=== PATIENT | female | born 2000 | race Caucasian/White ===

== ENCOUNTER 2025-05-26 15:14 | Emergency (ER) | payer OTHER, SELFPAY ==
--- OUTSIDE RECORDS SUMMARY | 2025-04-24 07:32 | XMS_ITS | Encounter Summary ---
Author Organization [facility] Address [address] [facility] [place] [address] Care Team Providers Care Machine Tailer Name Role Phone No Ref-Primary, Physician Primary Care Provider Reason for Referral * Consultation (Priority: 1-2 Weeks) - Pending Review Specialty Diagnoses / Procedures Referred By Bal jara Referred To Contact Urology Diagnoses Hydronephrosis with urinary obstruction due to ureteral calculus Jagdish Neri MD [facility] [address] [facility] [address] [place] [address] Phone: tel: fax: Referral ID Status Reason Start Date Expiration Date V isits Requested Visits Authorized [id number] Pending Review 04/24/2025 04/24/2026 1 1 Question Answer Referral Type: Urology Reason for Referral: Kidney Stones/Nephrolithiasis Kidney Stone Type: Acute Patient Scheduling Instructions: [employer] will call you to coordinate care as prescribed your provider. If you don t hear from a security systems sales representative within 2 business days, please call . Comments Please be aware that coverage of these services is subject to the terms and limitations of your health insurance plan. Call member services at your health plan with any benefit or coverage questions. [employer] will call you to coordinate care as prescribed your provider. If you don t hear from a security systems sales representative within 2 business days, please call . Reason for Visit * Reason Comments Hematuria Abdominal Pain Encounter Details Date Type Department Care Team ([facility] st Contact Info) Description 04/24/2025 7:32 AM CDT - 04/24/2025 1:16 PM CDT Emergency [facility] Emergency Dept [address] [place] [phone] Jagdish Neri MD [facility] [address] [place] [address] Hydronephrosis with urinary obstruction due to ureteral calculus; Right ovarian cyst Discharge Disposition: Home or Self Care Social History Tobacco Use Types Packs/Day Years Used Date Smoking Tobacco: Never Assessed Comments No Sex and Gender Information Value Date Recorded Sex Assigned at Not on file Legal Sex Female 7:31 AM CDT Gender Identity Not on file Sexual Orientation Not on file documented as of this encounter Last Filed Vital Signs Vital Sign Reading Time Taken Comments Blood Pressure 122/75 04/24/2025 11:43 AM CDT Pulse 79 04/24/2025 11:43 AM CDT Temperature 36.2 C (97.2 F) 04/24/2025 7:39 AM CDT Respiratory Rate 18 04/24/2025 7:39 AM CDT Oxygen Saturation 99% 04/24/2025 11:43 AM CDT Inhaled Oxygen Concentration - - Weight 59 kg (130 lb) 04/24/2025 7:39 AM CDT Height 149.9 cm (4' 11) 04/24/2025 7:39 AM CDT Body Mass Index 26.26 04/24/2025 7:39 AM CDT documented in this encounter Discharge Instructions * Discharge Instructions* Jagdish Neri MD - 04/24/2025 12:46 PM CDT I recommend altering doses of Tylenol and ibuprofen spaced out by 3 hours; should take Tylenol, 3 hours after that take ibuprofen, 3 hours after that back to Tylenol, 3 hours after that back to ibuprofen. You can add in the oxycodone as needed for more severe pain. You can use the Zofran for nausea. If you take the oxycodone, you should take MiraLAX as this can cause constipation. You should strain your urine. Return to the emergency department if you develop unbearable pain, high fever or unable empty your bladder. * Attachments The following attachments cannot be sent through Care Everywhere. * Ovarian Cyst: Hemorrhagic ([place]) * Kidney Stone ([place]) documented in this encounter Medications at Time of Discharge ondansetron (ZOFRAN ODT) 4 MG ODT tab Take 1 tablet (4 mg) by mouth every 6 hours as needed for nausea or vomiting. 10 tablet 04/24/2025 04/27/2025 oxyCODONE (ROXICODONE) 5 MG tablet Take 1 tablet (5 mg) by mouth every 6 hours as needed for moderate to severe pain. 6 tablet 04/24/2025 04/27/2025 polyethylene glycol (MIRALAX) 17 GM/Dose powder Take 17 g (1 Capful) by mouth daily. 527 g 04/24/2025 05/24/2025 tamsulosin (FLOMAX) 0.4 MG capsule Take 1 capsule (0.4 mg) by mouth daily for 10 doses. 10 capsule 04/24/2025 05/04/2025 documented as of this encounter ED Notes * Jagdish Neri MD - 04/24/2025 7:57 AM CDT Emergency Department Note History of Present Illness Chief Complaint Hematuria and Abdominal Pain HPI Marilu Melendez is a 25 year old female who presents for evaluation of hematuria and abdominal pain. Patient reports that 3 days ago she began experiencing severe lower abdominal cramping and the next day along with the continued pain she noticed some burning with urination and a small amount of b lood in her urine so she believed she was starting her menstrual period again, her last cycle having been in the beginning of March, however the bleeding has not increased or decreased and she had also now developed some minor urinary incontinence. She states that when this pain is present it has now become too severe for her to sleep through. She tried to take a tylenol last night for palliation but threw the medication up. Patient notes that she may have a chance of . Independent Historian None Review of External Notes None Past Medical History Medical History and Problem List None on file Medications Albuterol Zoloft Surgical History [place] teeth extraction Physical Exam Patient Vitals for the past 24 hrs: BP Temp Temp src Pulse Resp SpO2 Height Weight 04/24/25 1143 122/75 -- -- 79 -- 99 % -- -- 04/24/25 1000 120/72 -- -- 74 -- 98 % -- -- 04/24/25 0945 112/73 -- -- -- -- -- -- -- 04/24/25 0739 (!) 134/91 97.2 ??F (36.2 ??C) Temporal 101 18 99 % 1.499 m (4' 11) 59 kg (130 lb) Physical Exam Constitutional: Alert, attentive, GCS 15 Eyes: EOM are normal, anicteric, conjugate gaze CV: distal extremities warm, well perfused Chest: Non-labored breathing on RA GI: Diffuse bilateral lower abdominal tenderness, no distension. No guarding or rebound. Neurological: Alert, attentive, moving all extremities equally. Skin: Skin is warm and dry. Diagnostics Lab Results Labs Ordered and Resulted from Time of ED Arrival to Time of ED Departure BASIC METABOLIC PANEL - Abnormal Result Value Sodium 138 Potassium 3.8 Chloride 101 Carbon Dioxide (CO2) 20 (*) Anion Gap 17 (*) Urea Nitrogen 12.3 Creatinine 0.90 GFR Estimate 90 Calcium 9.4 Glucose 116 (*) CBC WITH PLATELETS AND DIFFERENTIAL - Abnormal WBC Count 13.5 (*) RBC Count 5.40 (*) Hemoglobin 15.7 Hematocrit 43.3 MCV 80 MCH 29.1 MCHC 36.3 RDW 12.2 Platelet Count 340 % Neutrophils 76 % Lymphocytes 18 % Monocytes 5 % Eosinophils 0 % Basophils 0 % Immature Granulocytes 0 NRBCs per 100 WBC 0 Absolute Neutrophils 10.3 (*) Absolute Lymphocytes 2.4 Absolute Monocytes 0.7 Absolute Eosinophils 0.0 Absolute Basophils 0.0 Absolute Immature Granulocytes 0.1 Absolute NRBCs 0.0 ROUTINE UA WITH MICROSCOPIC - Abnormal Color Urine Straw Appearance Urine Clear Glucose Urine Negative Bilirubin Urine Negative Ketones Urine 20 (*) Specific Redgranite Urine 1.011 Blood Urine Large (*) pH Urine 6.0 Protein Albumin Urine 10 (*) Urobilinogen Urine Normal Nitrite Urine Negative Leukocyte Esterase Urine Trace (*) Mucus Urine Present (*) RBC Urine >182 (*) WBC Urine 22 (*) Squamous Epithelials Urine <1 Hyaline Casts Urine 2 HCG QUALITATIVE - Normal hCG Serum Qualitative Negative HCG QUANTITATIVE - Normal hCG Quantitative <1 URINE CULTURE Imaging Abd/pelvis CT no contrast - Stone Protocol Final Result IMPRESSION: 1. Mild left hydronephrosis due to 5 mm distal ureteral calculus. 2. No other urinary tract calculi. 3. Hepatic steatosis. US Renal Complete Non-Vascular Final Result IMPRESSION: 1. Mild left hydronephrosis. Differential could include ureteral calculus, ureteral stricture, reflux, or ascending UTI/pyelonephritis. Depending on clinical scenario, consider noncontrast CT (if high clinical suspicion for calculus) or CT urogram for further evaluation. 2. Normal right kidney. 3. Mild hepatic steatosis noted. US Pelvis Cmplt w Transvag & Doppler LmtPel Duplex Limited Final Result IMPRESSION: 1. Complex cystic structure at the right ovary may be a decompressing follicle or hemorrhagic cyst.Small right ovarian region fluid. 2. No other acute abnormality. Independent Interpretation I personally reviewed her CT, see obstructing 5 mm distal ureteral stone. ED Course Medications Administered Medications ondansetron (ZOFRAN) injection 4 mg (4 mg Intravenous $Given 04/24/25 0747) sodium chloride 0.9% BOLUS 1,000 mL (0 mLs Intravenous Stopped 04/24/25 1015) acetaminophen (TYLENOL) tablet 975 mg (975 mg Oral $Given 04/24/25 0844) ketorolac (TORADOL) injection 15 mg (15 mg Intravenous $Given 04/24/25 1013) cefTRIAXone (ROCEPHIN) 1 g vial to attach to NS 100 mL bag for ADULTS or NS 50 mL bag for PEDS (0 gIntravenous Stopped 04/24/25 1116) Procedures Procedures Discussion of Management None ED Course ED Course as of 04/24/25 1249 SunApr 24, 2025 0757 I obtained patient history and performed a physical exam. 1232 I reassessed patient. Additional Documentation None Medical Decision Making / Diagnosis [facility] Diagnoses: IV Antibiotics given and/or elevated Lactate of 0 and no sepsis note found - Delete this reminder and enter the sepsis note or '.edcms' before signing chart.>>>None MIPS None MDM Marilu Marcus Melendez is a 25 year old female without significant past medical history presenting for evaluation of 1 day of urinary urgency, frequency with hematuria associated with diffuse lower abdominal pain. On arrival here she was in obvious discomfort with negative test prompting pelvic ultrasound, this shows no evidence of torsion but does show right ovarian cyst likely hemorrhagic.However on recheck, most of her pain was on the left side, her UA does show hematuria without overtevidence of UTI prompting renal ultrasound, this does show mild hydro on the lef suspicious for stone of which she does not have a history of. CT imaging without contrast demonstrates obstructing distal left ureteralt stone at 5 mm. She does not have an BRIAN, her hematuria is consistent with this, have lower suspicion for infection. She does have mild leukocytosis but is afebrile, she was given a dose of ceftriaxone as a precaution pending her CT. We will plan for discharge with close urology follow- up, return precautions including fever inability to void or unrelenting pain were reviewed. Recommended follow-up nonurgently for pelvic cyst. It sounds like there is a family history of ovarian cancer, I did review with with her that this is not indicative of cancer at this point. Disposition The patient was discharged. Diagnosis ICD-10-CM 1. Hydronephrosis with urinary obstruction due to ureteral calculus N13.2 Adult Urology Draw Frame Operator Referral left 2. Right ovarian cyst N83.201 Discharge Medications New Prescriptions ONDANSETRON (ZOFRAN ODT) 4 MG ODT TAB Take 1 tablet (4 mg) by mouth every 6 hours as needed for nausea or vomiting. OXYCODONE (ROXICODONE) 5 MG TABLET Take 1 tablet (5 mg) by mouth every 6 hours as needed for moderate to severe pain. POLYETHYLENE GLYCOL (MIRALAX) 17 GM/DOSE POWDER Take 17 g (1 Capful) by mouth daily. TAMSULOSIN (FLOMAX) 0.4 MG CAPSULE Take 1 capsule (0.4 mg) by mouth daily for 10 doses. Jagdish Neri MD [facility] 12:49 PM 04/24/25 Scribe Disclosure: I, Kayla Pierre, am serving as a scribe at 8:02 AM on 04/24/2025 to document services personally performed by Jagdish Neri MD based on my observations and the provider's statements to me. Jagdish Neri MD 04/24/25 1247 * Theresa Castellanos RN - 04/24/2025 7:34 AM CDT Pt reports lower abdominal cramping x 3 days, progressively worsening. Pt states she believed at first this was her menstrual cycle starting. Pt reports blood when I wipe, but it's just in my urine.I have put some tampons in, but they come out clean. Blood in urine is pink, and a little painful while urinating. Afebrile. Pain 06/24. LMP end of February, beginning of March. N/v onset yesterday morning. Last BM 2 days ago, abnormal for pt. documented in this encounter Plan of Treatment Scheduled Referrals Name Type Priority Associated Diagnoses Orde r Schedule Adult Urology Draw Frame Operator Referral Referral Priority: 1-2 Weeks Hydronephrosis with urinary obstruction due to ureteral calculus Expected: 04/24/2025 (Approximate), Expires: 04/24/2026 documented as of this encounter Procedures Procedure Name Priority Date/Time Associated Diagnosis Comments CT ABDOMEN PELVIS W/O CONTRAST STAT 04/24/2025 11:52 AM CDT US RENAL COMPLETE NON-VASCULAR STAT 04/24/2025 10:48 AM CDT US PELVIS COMPLETE W TRANSVAGINAL AND DOPPLER LIMITED STAT 04/24/2025 9:49 AM CDT ROUTINE UA WITH MICROSCOPIC STAT 04/24/2025 8:45 AM CDT URINE CULTURE Add-On 04/24/2025 8:45 AM CDT CBC WITH PLATELETS AND DIFFERENTIAL STAT 04/24/2025 7:45 AM CDT CBC WITH PLATELETS & DIFFERENTIAL STAT 04/24/2025 7:45 AM CDT HCG QUALITATIVE STAT 04/24/2025 7:45 AM CDT HCG QUANTITATIVE STAT 04/24/2025 7:45 AM CDT BASIC METABOLIC PANEL STAT 04/24/2025 7:45 AM CDT documented in this encounter Results * Abd/pelvis CT no contrast - Stone Protocol (04/24/2025 11:52 AM CDT) Anatomical Region Laterality Modality Abdomen/Pelvis, SUBRAD CT GLORIA DY, UMP CT ABDOMEN PELVIS, RAD CT Computed Tomography 04/24/2025 11:5 2 AM CDT Impressions 04/24/2025 12:08 PM CDT IMPRESSION: 1. Mild left hydronephrosis due to 5 mm distal ureteral calculus. 2. No other urinary tract calculi. 3. Hepatic steatosis. Narrative 04/24/2025 12:08 PM CDT EXAM: CT ABDOMEN PELVIS W/O CONTRAST LOCATION: [facility] DATE: 04/24/2025 INDICATION: L flank pain, hydro on US COMPARISON: Ultrasound earlier same day. TECHNIQUE: CT scan of the abdomen and pelvis was performed without IV contrast. Multiplanar reformats were obtained. Dose reduction techniques were used. CONTRAST: None. FINDINGS: LOWER CHEST: Lung bases clear. HEPATOBILIARY: Diffuse steatosis. No calcified gallstones. PANCREAS: Normal. SPLEEN: Normal. ADRENAL GLANDS: Normal. KIDNEYS/BLADDER: Mild left hydronephrosis due to 5 mm distal ureteral calculus just proximal to the UVJ. No other urinary tract calculi. Normal-sized kidneys. No right-sided hydronephrosis. No bladder wall thickening. BOWEL: No obstruction or inflammatory change. Normal appendix. LYMPH NODES: No lymphadenopathy. VASCULATURE: Normal caliber. PELVIC ORGANS: Small likely physiologic follicle/cyst right ovary, see prior ultrasound report. Trace physiologic amount free fluid. MUSCULOSKELETAL: Unremarkable. Procedure Note Jagdish Anne MD - 04/24/2025 EXAM: CT ABDOMEN PELVIS W/O CONTRAST LOCATION: [facility] DATE: 04/24/2025 INDICATION: L flank pain, hydro on US COMPARISON: Ultrasound earlier same day. TECHNIQUE: CT scan of the abdomen and pelvis was performed without IVcontrast. Multiplanar reformats were obtained. Dose reduction techniqueswere used. CONTRAST: None. FINDINGS: LOWER CHEST: Lung bases clear. HEPATOBILIARY: Diffuse steatosis. No calcified gallstones. PANCREAS: Normal. SPLEEN: Normal. ADRENAL GLANDS: Normal. KIDNEYS/BLADDER: Mild left hydronephrosis due to 5 mm distal ureteralcalculus just proximal to the UVJ. No other urinary tract calculi. Normal-sized kidneys. No right- sidedhydronephrosis. No bladder wall thickening. BOWEL: No obstruction or inflammatory change. Normal appendix. LYMPH NODES: No lymphadenopathy. VASCULATURE: Normal caliber. PELVIC ORGANS: Small likely physiologic follicle/cyst right ovary, seeprior ultrasound report. Trace physiologic amount free fluid. MUSCULOSKELETAL: Unremarkable. IMPRESSION: 1. Mild left hydronephrosis due to 5 mm distal ureteral calculus. 2. No other urinary tract calculi. 3. Hepatic steatosis. Jagdish Neri MD IMG CT ORDERABLES Final R esult * US Renal Complete Non-Vascular (04/24/2025 10:48 AM CDT) Anatomical Region Laterality Modality Abdomen/Pelvis Ultrasound 04/24/2025 10:4 8 AM CDT Impressions 04/24/2025 10:56 AM CDT IMPRESSION: 1. Mild left hydronephrosis. Differential could include ureteral calculus, ureteral stricture, reflux, or ascending UTI/pyelonephritis. Depending on clinical scenario, consider noncontrast CT (if high clinical suspicion for calculus) or CT urogram for further evaluation. 2. Normal right kidney. 3. Mild hepatic steatosis noted. Narrative 04/24/2025 10:56 AM CDT EXAM: US RENAL COMPLETE NON-VASCULAR LOCATION: [facility] DATE: 04/24/2025 INDICATION: hematuria, ? obstruction vs pyelo COMPARISON: None. TECHNIQUE: Routine Bilateral Renal and Bladder Ultrasound. FINDINGS: RIGHT KIDNEY: 9.0 cm. Normal without hydronephrosis or masses. LEFT KIDNEY: 11.0 cm. Normal cortical thickness. Mild hydronephrosis. No perinephric fluid collections. BLADDER: Decompressed without significant wall thickening. Bilateral ureteral jets are identified. Procedure Note Jagdish Anne MD - 04/24/2025 EXAM: US RENAL COMPLETE NON-VASCULAR LOCATION: [facility] DATE: 04/24/2025 INDICATION: hematuria, ? obstruction vs pyelo COMPARISON: None. TECHNIQUE: Routine Bilateral Renal and Bladder Ultrasound. FINDINGS: RIGHT KIDNEY: 9.0 cm. Normal without hydronephrosis or masses. LEFT KIDNEY: 11.0 cm. Normal cortical thickness. Mild hydronephrosis. Noperinephric fluid collections. BLADDER: Decompressed without significant wall thickening. Bilateralureteral jets are identified. IMPRESSION: 1. Mild left hydronephrosis. Differential could include ureteralcalculus, ureteral stricture, reflux, or ascending UTI/pyelonephritis.Depending on clinical scenario, consider noncontrast CT (if high clinicalsuspicion for calculus) or CT urogram for further evaluation. 2. Normal right kidney. 3. Mild hepatic steatosis noted. us Jagdish Neri MD IMG US ORDERABLES Final R esult * US Pelvis Cmplt w Transvag & Doppler LmtPel Duplex Limited (04/24/2025 9:49 AM CDT) Anatomical Region Laterality Modality Abdomen/Pelvis Ultrasound 04/24/2025 9:49 AM CDT Impressions 04/24/2025 10:11 AM CDT IMPRESSION: 1. Complex cystic structure at the right ovary may be a decompressing follicle or hemorrhagic cyst. Small right ovarian region fluid. 2. No other acute abnormality. Narrative 04/24/2025 10:11 AM CDT EXAM: US PELVIS COMPLETE W TRANSVAGINAL AND DOPPLER LIMITED LOCATION: [facility] DATE: 04/24/2025 INDICATION: Lower abdominal pain. COMPARISON: None. TECHNIQUE: Transabdominal scans were performed. Endovaginal ultrasound was performed to better visualize the adnexa. Color flow with spectral Doppler and waveform analysis performed. FINDINGS: UTERUS: 8.2 x 5.0 x 3.6 cm. Normal in size and position with no masses. ENDOMETRIUM: 8 mm. Normal smooth endometrium. RIGHT OVARY: 3.6 x 2.5 x 2.4 cm. Complex cyst at the right ovary is 2.2 x 1.8 x 1.5 cm. This could be a decompressing follicle or perhaps a hemorrhagic cyst. Normal color and Doppler spectral assessment of the right ovary. LEFT OVARY: 2.6 x 2.2 x 1.9 cm. Normal with arterial and venous duplex flow identified. Small fluid at the right adnexal area. Procedure Note Morales Velázquez MD - 04/24/2025 EXAM: US PELVIS COMPLETE W TRANSVAGINAL AND DOPPLER LIMITED LOCATION: [facility] DATE: 04/24/2025 INDICATION: Lower abdominal pain. COMPARISON: None. TECHNIQUE: Transabdominal scans were performed. Endovaginal ultrasound wasperformed to better visualize the adnexa. Color flow with spectral Dopplerand waveform analysis performed. FINDINGS: UTERUS: 8.2 x 5.0 x 3.6 cm. Normal in size and position with no masses. ENDOMETRIUM: 8 mm. Normal smooth endometrium. RIGHT OVARY: 3.6 x 2.5 x 2.4 cm. Complex cyst at the right ovary is 2.2 x1.8 x 1.5 cm. This could be a decompressing follicle or perhaps ahemorrhagic cyst. Normal color and Doppler spectral assessment of theright ovary. LEFT OVARY: 2.6 x 2.2 x 1.9 cm. Normal with arterial and venous duplexflow identified. Small fluid at the right adnexal area. IMPRESSION: 1. Complex cystic structure at the right ovary may be a decompressingfollicle or hemorrhagic cyst. Small right ovarian region fluid. 2. No other acute abnormality. us Jagdish Neri MD [facility] US ORDERABLES Final R esult * Urine Culture (04/24/2025 8:45 AM CDT) Culture <10,000 CFU/mL Mixture of Urogenital Bettye 04/25/2025 9:55 AM CDT [facility] Urine MID-STREAM URINE SPECIMEN / Unknown Non-blood Collection / Unknown 04/24/2025 8:45 AM CDT 04/24/2025 8:52 AM CDT us Jagdish Neri MD LAB - MICRO GENERAL ORDER AUDELIA Final Result [facility] Lab [address] [facility], [address] [place] [phone] * (ABNORMAL) UA with Microscopic (04/24/2025 8:45 AM CDT) Color Urine Straw Colorless, Straw, Light Yellow, Yellow 04/24/2025 9:17 AM CDT LABORATORY Appearance Urine Clear Clear 04/24/20 9:17 AM CDT LABORATORY Glucose Urine Negative Negative mg/dL 04/24/2025 9:17 AM CDT LABORATORY Bilirubin Urine Negative Negative 9:17 AM CDT LABORATORY Ketones Urine 20(A) Negative mg/dL 04/24/2025 9:17 AM CDT LABORATORY Specific Redgranite Urine 1.011 1.003 - 1.035 04/24/2025 9:17 AM CDT LABORATORY Blood Urine Large(A) Negative 04/24/2025 9:17 AM CDT LABORATORY pH Urine 6.0 5.0 - 7.0 04/24/2025 9:17 AM CDT LABORATORY Protein Albumin Urine 10(A) Negative mg/dL 04/24/2025 9:17 AM CDT LABORATORY Urobilinogen Urine Normal Normal mg/dL 04/24/2025 9:17 AM CDT LABORATORY Nitrite Urine Negative Negative 04/24/2025 9:17 AM CDT LABORATORY Leukocyte Esterase Urine Trace(A) Negative 04/24/2025 9:17 AM CDT LABORATORY Mucus Urine Present(A) None Seen /LPF 04/24/2025 9:17 AM CDT LABORATORY RBC Urine >182(H) <=2 /HPF 04/24/2025 9:17 AM CDT LABORATORY WBC Urine 22(H) <=5 /HPF 04/24/2025 9:17 AM CDT LABORATORY Squamous Epithelials Urine <1 <=1 /HPF 04/24/2025 9:17 AM CDT LABORATORY Hyaline Casts Urine 2 <=2 /LPF 04/24/2025 9:17 AM CDT LABORATORY Urine MID-STREAM URINE SPECIMEN / Unknown Non-blood Collection / Unknown 04/24/2025 8:45 AM CDT 04/24/2025 8:52 AM CDT Jagdish Neri MD LAB - URINE ORDERABLES Fi nal Result LABORATORY [facility] [address], [address] [place] [address], [facility] [phone] * HCG quantitative (blood) (04/24/2025 7:45 AM CDT) hCG Quantitative <1 <5 mIU/mL 04/24/20 8:36 AM CDT LABORATORY Comment: Adult: 0-5 mIU/mL for healthy non- person Neonates: Should be within normal ranges by 2 days after Blood BLOOD SPECIMEN / Unknown Venipuncture / Unknown 04/24/2025 7:45 AM CDT 04/24/2025 7:47 AM CDT us Jagdish Neri MD LAB - BLOOD ORDERABLES Fi nal Result LABORATORY [facility] [address], [address] [place] [address], [facility] [phone] * (ABNORMAL) CBC with platelets and differential (04/24/2025 7:45 AM CDT) WBC Count 13.5(H) 4.0 - 11.0 10e3/uL 04/24/2025 7:50 AM CDT LABORATORY RBC Count 5.40(H) 3.80 - 5.20 10e6/uL 04/24/2025 7:50 AM CDT LABORATORY Hemoglobin 15.7 11.7 - 15.7 g/dL 04/24/2025 7:50 AM CDT LABORATORY Hematocrit 43.3 35.0 - 47.0 % 04/24/2025 7:50 AM CDT LABORATORY MCV 80 78 - 100 fL 04/24/2025 7:50 AM CDT LABORATORY MCH 29.1 26.5 - 33.0 pg 04/24/2025 7:50 AM CDT LABORATORY MCHC 36.3 31.5 - 36.5 g/dL 04/24/2025 7:50 AM CDT LABORATORY RDW 12.2 10.0 - 15.0 % 04/24/2025 7:50 AM CDT LABORATORY Platelet Count 340 150 - 450 10e3/uL 04/24/2025 7:50 AM CDT LABORATORY % Neutrophils 76 % 04/24/2025 7:50 AM CDT LABORATORY % Lymphocytes 18 % 04/24/2025 7:50 AM CDT LABORATORY % Monocytes 5 % 04/24/2025 7:50 AM CDT LABORATORY % Eosinophils 0 % 04/24/2025 7:50 AM CDT LABORATORY % Basophils 0 % 04/24/2025 7:50 AM CDT LABORATORY % Immature Granulocytes 0 % 04/24/2025 7:50 AM CDT LABORATORY NRBCs per 100 WBC 0 <1 /100 025 7:50 AM CDT LABORATORY Absolute Neutrophils 10.3(H) 1.6 - 8.3 10e3/uL 04/24/2025 7:50 AM CDT LABORATORY Absolute Lymphocytes 2.4 0.8 - 5.3 10e3/uL 04/24/2025 7:50 AM CDT LABORATORY Absolute Monocytes 0.7 0.0 - 1.3 10e3/uL 04/24/2025 7:50 AM CDT LABORATORY Absolute Eosinophils 0.0 0.0 - 0.7 10e3/uL 04/24/2025 7:50 AM CDT LABORATORY Absolute Basophils 0.0 0.0 - 0.2 10e3/uL 04/24/2025 7:50 AM CDT LABORATORY Absolute Immature Granulocytes 0.1 <=0.4 10e3/uL 04/24/2025 7:50 AM CDT LABORATORY Absolute NRBCs 0.0 10e3/uL 04/24/2025 7:50 AM CDT LABORATORY Blood BLOOD SPECIMEN / Unknown Venipuncture / Unknown 04/24/2025 7:45 AM CDT 04/24/2025 7:47 AM CDT Jagdish Neri MD LAB - BLOOD ORDERABLES Fi nal Result Performing Organization Address [facility]/ZIP Co de Phone Number LABORATORY [facility] [address] floor, [place] [address], [facility] [phone] * HCG QUALitative (blood) (04/24/2025 7:45 AM CDT) Pathologist [facility] hCG Serum Qualitative Negative Negative VIANEY 04/24/2025 8:08 AM CDT LABORATORY Comment:This test is for scr eening purposes. Results should be interpreted along with the clinical picture. Confirmation testing is available if warranted by ordering [id number], HCG Quantitative . Blood BLOOD SPECIMEN / Unknown Venipuncture / Unknown 04/24/2025 7:45 AM CDT 04/24/2025 7:47 AM CDT Jagdish Neri MD LAB - BLOOD ORDERABLES Fi nal Result Performing Organization Address [facility] Co de Phone Number LABORATORY [facility] [address], [place] [address] [address], [facility] [phone] * (ABNORMAL) Basic metabolic panel (04/24/2025 7:45 AM CDT) Pathologist [facility] Sodium 138 135 - 145 mmol/L 04/24/2025 8:36 AM CDT LABORATORY Potassium 3.8 3.4 - 5.3 mmol/L 04/24/2025 8:36 AM CDT LABORATORY Chloride 101 98 - 107 mmol/L 04/24/2025 8:36 AM CDT LABORATORY Carbon Dioxide (CO2) 20(L) 22 - 29 mmol/L 04/24/2025 8:36 AM CDT LABORATORY Anion Gap 17(H) 7 - 15 mmol/L 04/24/2025 8:36 AM CDT LABORATORY Urea Nitrogen 12.3 6.0 - 20.0 mg/dL 04/24/2025 8:36 AM CDT LABORATORY Creatinine 0.90 0.51 - 0.95 mg/dL 04/24/2025 8:36 AM CDT LABORATORY GFR Estimate 90 >60 mL/min/1.7 3m2 04/24/2025 8:36 AM CDT LABORATORY Comment:eGFR calculated us2020 CKD-EPI equation. Calcium 9.4 8.8 - 10.4 mg/dL 04/24/2025 8:36 AM CDT LABORATORY Glucose 116(H) 70 - 99 mg/dL 04/24/2025 8:36 AM CDT LABORATORY Blood BLOOD SPECIMEN / Unknown Venipuncture / Unknown 04/24/2025 7:45 AM CDT 04/24/2025 7:47 AM CDT Jagdish Neri MD LAB - BLOOD ORDERABLES Fi nal Result LABORATORY [facility] [address], [address] [place] [address], [facility] [phone] documented in this encounter Visit Diagnoses Diagnosis Hydronephrosis with urinary obstruction due to ureteral calculus Right ovarian cyst Other and unspecified ovarian cyst documented in this encounter Administered Medications Inactive Administered Medications - up to 3 most recent administrations Medication Order MAR Action Action Date Dose Rate Site acetaminophen (TYLENOL) tablet 975 mg 975 mg, Oral, ONCE, On Sun04/24/25 at 0805, For 1 dose, Maximum acetaminophen dose from all sources = 75 mg/kg/day not to exceed 4 grams/day. $Given 04/24/2025 8:44 AM CDT 975 mg cefTRIAXone (ROCEPHIN) 1 g vial to attach to NS 100 mL bag for ADULTS or NS 50 mL bag for PEDS STAT, 1 g, Intravenous, ONCE, On Sun04/24/25 at 1000, For 1 dose, Lactated Ringer's solution is not compatible with ceftriaxone for injection, Indications: cystitisIndications:cystitis $New Bag 04/24/2025 10:15 AM CDT 1 g ketorolac (TORADOL) injection 15 mg 15 mg, Intravenous, ONCE, On Sun04/24/25 at 0935, For 1 dose, Can cause pain on injection. If ordered intravenously (IV) : administer through a running maintenance fluid over 1 minute followed by a flush. If patient complains of pain on injection, may dilute 15-30 mg in 5 mL and push over 1 to 2 minutes. $Given 04/24/2025 10:13 AM CDT 15 mg ondansetron (ZOFRAN) injection 4 mg 4 mg, Intravenous, ONCE, Administer over 2-5 Minutes, On Sun04/24/25 at 0750, For 1 dose $Given 04/24/2025 7:47 AM CDT 4 mg sodium chloride 0.9% BOLUS 1,000 mL Intravenous, 1,000 mL, ONCE, at 1,000 mL/hr, Administer over 1 Hours, On Sun04/24/25 at 0755, For 1 dose $New Bag 04/24/2025 8:06 AM CDT 1,000 mLs 1000 mL/hr documented in this encounter Active and Recently Administered Medications Times are shown in CDT. Scheduled Medication Order 04/22/2025 04/23/2025 04/24/2025 acetaminophen (TYLENOL) tablet 975 mg (COMPLETED) 975 mg, Oral, ONCE, On Sun04/24/25 at 0805, For 1 dose, Maximum acetaminophen dose from all sources = 75 mg/kg/day not to exceed 4 grams/day. 0844 ($Given - Provi bridgett: Mary Booker RN) cefTRIAXone (ROCEPHIN) 1 g vial to attach to NS 100 mL bag for ADULTS or NS 50 mL bag for PEDS (COMPLETED) STAT, 1 g, Intravenous, ONCE, On Sun04/24/25 at 1000, For 1 dose, Lactated Ringer's solution is not compatible with ceftriaxone for injection, Indications: cystitis 1015 ($New Bag - Pro vider: Mary Booker RN)1116 (Stopped - Provider: Mary Booker RN) ketorolac (TORADOL) injection 15 mg (COMPLETED) 15 mg, Intravenous, ONCE, On Sun04/24/25 at 0935, For 1 dose, Can cause pain on injection. If ordered intravenously (IV) : administer through a running maintenance fluid over 1 minute followed by a flush. If patient complains of pain on injection, may dilute 15-30 mg in 5 mL and push over 1 to 2 minutes. 1013 ($Given - Provi bridgett: Mary Booker RN) ondansetron (ZOFRAN) injection 4 mg (COMPLETED) 4 mg, Intravenous, ONCE, Administer over 2-5 Minutes, On Sun04/24/25 at 0750, For 1 dose 0747 ($Given - Provi bridgett: Theresa Castellanos RN) sodium chloride 0.9% BOLUS 1,000 mL (COMPLETED) Intravenous, 1,000 mL, ONCE, at 1,000 mL/hr, Administer over 1 Hours, On Sun04/24/25 at 0755, For 1 dose 0806 ($New Bag - Pro vider: Mary Booker RN)1015 (Stopped - Provider: Mary Booker RN) documented in this encounter Care Teams Machine Tailer Relationship Specialty Start Date End Date No Ref-Primary, Physician PCP - General 04/24/25 documented as of this encounter
--- OUTSIDE RECORDS SUMMARY | 2025-05-02 13:30 | XMS_ITS | Encounter Summary ---
Author Organization [facility] Address [address] [facility] [place] [address] Care Team Providers Care Senior Sustainability Advisor Name Role Phone No Ref-Primary, Physician Primary Care Provider Reason for Referral * Consultation (Urgent: 3-5 Days) - Pending Review Specialty Diagnoses / Procedures Referred By Bal jara Referred To Contact Urology Diagnoses Renal colic Mike Matt MD Referral ID Status Reason Start Date Expiration Date V isits Requested Visits Authorized [id number] Pending Review 05/02/2025 05/02/2026 1 1 Question Answer Referral Type: Urology Reason for Referral: Kidney Stones/Nephrolithiasis Kidney Stone Type: Acute Patient Scheduling Instructions: [facility] will call you to coordinate care as prescribed your provider. If you don t hear from a high school admissions representative within 2 business days, please call . Comments Please be aware that coverage of these services is subject to the terms and limitations of your health insurance plan. Call member services at your health plan with any benefit or coverage questions. [facility] will call you to coordinate care as prescribed your provider. If you don t hear from a high school admissions representative within 2 business days, please call . Reason for Visit * Reason Comments Flank Pain Left flank pain Encounter Details Date Type Department Care Team (Late st Contact Info) Description 05/02/2025 1:30 PM CDT - 05/02/2025 6:22 PM CDT Emergency [facility] Emergency Dept [address] [place] [phone] Mike Matt MD Renal colic Discharge Disposition: Home or Self Care Social [...] Sign Reading Time Taken Comments Blood Pressure 130/72 05/02/2025 6:09 PM CDT Pulse 72 05/02/2025 6:09 PM CDT Temperature 36.6 C (97.9 F) 05/02/2025 12:52 PM CDT Respiratory Rate 16 05/02/2025 6:09 PM CDT Oxygen Saturation 92% 05/02/2025 6:09 PM CDT Inhaled Oxygen Concentration - - Weight 61.2 kg (135 lb) 05/02/2025 12:52 PM CDT Height 149.9 cm (4' 11) 05/02/2025 12:52 PM CDT Body Mass Index 27.27 05/02/2025 12:52 PM CDT documented in this encounter Discharge Instructions * Attachments The following attachments cannot be sent through Care Everywhere. * Kidney Stone ([place] Island[place]) documented in this encounter Medications at Time of Discharge polyethylene glycol (MIRALAX) 17 GM/Dose powder Take 17 g (1 Capful) by mouth daily. 527 g 04/24/2025 05/24/2025 tamsulosin (FLOMAX) 0.4 MG capsule Take 1 capsule (0.4 mg) by mouth daily for 10 doses. 10 capsule 04/24/2025 05/04/2025 documented as of this encounter ED Notes * Juvenal Giron RN - 05/02/2025 4:04 PM CDT Bed: TR03 Expected date: Expected time: Means of arrival: Comments: Doing EKG * Mike Matt MD - 05/02/2025 1:53 PM CDT Emergency Department Note History of Present Illness Chief Complaint Flank Pain HPI Marilu Marcus Melendez is a 25 year old female who presents for flank pain. Patient was recently diagnosed with a 5 mm left kidney stone 8 days ago on 04/24 here in the ED after presenting for left flank pain and hematuria. She was sent home with Zofran, Oxycodone, Flomax and Miralax. Her pain resolved for a few days after discharge, however her pain returned yesterday. Her pain is in the left side of her back and wrapping towards the front, same as before. She has been the medications she was discharged without relief as she vomited the medications. She is also unable to tolerate water. She has not passed the stone. She feels warm, but denies any fever. She has been urinating a bit, last episode before coming in. She got her period two days ago and states it has been normal. Independent Historian None Review of External Notes None Past Medical History Medical History and Problem List The patient does not have any past pertinent medical history Medications Albuterol Zoloft Ortho Tri-Cyclen, 28 Surgical History [place] teeth extraction Physical Exam Patient Vitals for the past 24 hrs: BP Temp Temp src Pulse Resp SpO2 Height Weight 05/02/25 1809 130/72 -- -- 72 16 92 % -- -- 05/02/25 1640 -- -- -- -- 16 98 % -- -- 05/02/25 1253 -- -- -- -- -- 100 % -- -- 05/02/25 1252 112/82 97.9 ??F (36.6 ??C) Temporal 84 18 -- 1.499 m (4' 11) 61.2 kg (135 lb) Physical Exam General: Well appearing, nontoxic. Resting comfortably Head: Scalp, face, and head appear normal Eyes: Pupils are equal, round Conjunctivae non-injected and sclerae white ENT: The external nose is normal Pinnae are normal Neck: Normal range of motion There is no rigidity noted Trachea is in the midline CV: Regular rate and rhythm Normal S1/S2, no S3/S4 No murmur or rub. Radial pulses 2+ bilaterally. Resp: Lungs are clear and equal bilaterally There is no tachypnea No increased work of breathing No rales, wheezing, or rhonchi GI: Abdomen is soft, no rigidity or guarding No distension, or mass Moderate left flank and LLQ abdominal tenderness. No rebound tenderness MS: Normal muscular tone Skin: No rash or acute skin lesions noted Neuro: Awake and alert Speech is normal and fluent Moves all extremities spontaneously Psych: Normal affect. Appropriate interactions. Diagnostics Lab Results Labs Ordered and Resulted from Time of ED Arrival to Time of ED Departure BASIC METABOLIC PANEL - Abnormal Result Value Sodium 138 Potassium 3.6 Chloride 100 Carbon Dioxide (CO2) 25 Anion Gap 13 Urea Nitrogen 8.0 Creatinine 1.20 (*) GFR Estimate 64 Calcium 8.9 Glucose 96 ROUTINE UA WITH MICROSCOPIC REFLEX TO CULTURE - Abnormal Color Urine Yellow Appearance Urine Clear Glucose Urine Negative Bilirubin Urine Negative Ketones Urine 150 (*) Specific [place] Urine 1.027 Blood Urine Moderate (*) pH Urine 6.5 Protein Albumin Urine 20 (*) Urobilinogen Urine Normal Nitrite Urine Negative Leukocyte Esterase Urine Negative Mucus Urine Present (*) RBC Urine 59 (*) WBC Urine 19 (*) Squamous Epithelials Urine <1 CBC WITH PLATELETS AND DIFFERENTIAL WBC Count 9.6 RBC Count 4.97 Hemoglobin 14.3 Hematocrit 41.2 MCV 83 MCH 28.8 MCHC 34.7 RDW 12.3 Platelet Count 315 % Neutrophils 74 % Lymphocytes 19 % Monocytes 7 % Eosinophils 0 % Basophils 0 % Immature Granulocytes 1 NRBCs per 100 WBC 0 Absolute Neutrophils 7.1 Absolute Lymphocytes 1.8 Absolute Monocytes 0.6 Absolute Eosinophils 0.0 Absolute Basophils 0.0 Absolute Immature Granulocytes 0.1 Absolute NRBCs 0.0 URINE CULTURE Imaging No orders to display Independent Interpretation None ED Course Medications Administered Medications sodium chloride 0.9% BOLUS 1,000 mL (0 mLs Intravenous Stopped 05/02/25 1444) ketorolac (TORADOL) injection 15 mg (15 mg Intravenous $Given 05/02/25 1407) sodium chloride 0.9% BOLUS 1,000 mL (0 mLs Intravenous Stopped 05/02/25 1620) Procedures Procedures Discussion of Management None ED Course ED Course as of 05/03/25 1021 Sat May 02, 2025 1353 I obtained history and examined the patient as noted above. 1801 I rechecked and updated the patient. 1808 We discussed plan for discharge and the patient is comfortable with this. Additional Documentation None Medical Decision Making / Diagnosis [facility] Diagnoses: None MIPS None MDM Marilu Marcus Melendez is a 25 year old female who presents with recurrent left flank and abdominal painin the setting of known recently diagnosed 5 mm ureteral stone. On my evaluation she is well-appearing, hemodynamically stable and afebrile. Symptoms are consistent with recurrent renal colic. Patient was treated with IV fluids, antiemetics and analgesics and felt improved. Creatinine is minimally elevated at 1.2. No fever, leukocytosis or evidence of infection. Small amount of pyuria on urinalysis unlikely to represent infection. Urine culture sent and pending. Urine very concentrated. No indication for repeat abdominal imaging at this time. Patient felt improved after the above treatment. She wishes to continue outpatient treatment. This is reasonable. I placed a follow-up consult/referral with urology as if the stone does not pass soon she may need additional intervention. At minimum she will require close follow-up. She will continue to strain her urine to monitor for stone passage.Close return precautions were provided. Patient is agreeable to plan of care and she was dischargedin stable condition. I stressed the importance of increasing oral fluid intake. Disposition The patient was discharged. Diagnosis ICD-10-CM 1. 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 Take with food., Disp-30 tablet, R-0, E-Prescribe ondansetron (ZOFRAN ODT) 4 MG ODT tab Take 1 tablet (4 mg) by mouth every 8 hours as needed for nausea or vomiting., Disp-15 tablet, R-0, E-PrescribeMay substitute non-ODT formulation per patient preference/insurance coverage. oxyCODONE (ROXICODONE) 5 MG tablet Take 1 tablet (5 mg) by mouth every 6 hours as needed for pain.,Disp-12 tablet, R-0, E-Prescribe Scribe Disclosure: I, Nohelia Ojeda, am serving as a scribe at 1:56 PM on 05/02/2025 to document services personally performed by Mike Matt MD based on my observations and the provider's statements to me. Mike Matt MD 05/03/25 1026 * Mary Montero RN - 05/02/2025 12:50 PM CDT Pt states she was diagnosed with left kidney stone, discharged with pain medications but pain increased documented in this encounter Plan of Treatment Scheduled Referrals Name Type Priority Associated Diagnoses Orde r Schedule Adult Urology Press Operator Meat Referral Referral Urgent: 3-5 Days Renal colic Expected: 05/02/2025 (Approximate), Expires: 05/02/2026 documented as of this encounter Procedures Procedure Name Priority Date/Time Associated Diagnosis Comments CBC WITH PLATELETS AND DIFFERENTIAL STAT 05/02/2025 1:55 PM CDT CBC WITH PLATELETS & DIFFERENTIAL STAT 05/02/2025 1:55 PM CDT BASIC METABOLIC PANEL STAT 05/02/2025 1:55 PM CDT ROUTINE UA WITH MICROSCOPIC REFLEX TO CULTURE STAT 05/02/2025 1:49 PM CDT URINE CULTURE STAT 05/02/2025 1:49 PM CDT documented in this encounter Results * CBC with platelets and differential (05/02/2025 1:55 PM CDT) WBC Count 9.6 4.0 - 11.0 10e3/uL 05/02/2025 2:05 PM CDT LABORATORY RBC Count 4.97 3.80 - 5.20 10e6/uL 05/02/2025 2:05 PM CDT LABORATORY Hemoglobin 14.3 11.7 - 15.7 g/dL 05/02/2025 2:05 PM CDT LABORATORY Hematocrit 41.2 35.0 - 47.0 % 05/02/2025 2:05 PM CDT LABORATORY MCV 83 78 - 100 fL 05/02/2025 2:05 PM CDT LABORATORY MCH 28.8 26.5 - 33.0 pg 05/02/2025 2:05 PM CDT LABORATORY MCHC 34.7 31.5 - 36.5 g/dL 05/02/2025 2:05 PM CDT LABORATORY RDW 12.3 10.0 - 15.0 % 05/02/2025 2:05 PM CDT LABORATORY Platelet Count 315 150 - 450 10e3/uL 05/02/2025 2:05 PM CDT LABORATORY % Neutrophils 74 % 05/02/2025 2:05 PM CDT LABORATORY % Lymphocytes 19 % 05/02/2025 2:05 PM CDT LABORATORY % Monocytes 7 % 05/02/2025 2:05 PM CDT LABORATORY % Eosinophils 0 % 05/02/2025 2:05 PM CDT LABORATORY % Basophils 0 % 05/02/2025 2:05 PM CDT LABORATORY % Immature Granulocytes 1 % 05/02/2025 2:05 PM CDT LABORATORY NRBCs per 100 WBC 0 <1 /100 025 2:05 PM CDT LABORATORY Absolute Neutrophils 7.1 1.6 - 8.3 10e3/uL 05/02/2025 2:05 PM CDT LABORATORY Absolute Lymphocytes 1.8 0.8 - 5.3 10e3/uL 05/02/2025 2:05 PM CDT LABORATORY Absolute Monocytes 0.6 0.0 - 1.3 10e3/uL 05/02/2025 2:05 PM CDT LABORATORY Absolute Eosinophils 0.0 0.0 - 0.7 10e3/uL 05/02/2025 2:05 PM CDT LABORATORY Absolute Basophils 0.0 0.0 - 0.2 10e3/uL 05/02/2025 2:05 PM CDT LABORATORY Absolute Immature Granulocytes 0.1 <=0.4 10e3/uL 05/02/2025 2:05 PM CDT LABORATORY Absolute NRBCs 0.0 10e3/uL 05/02/2025 2:05 PM CDT LABORATORY Blood BLOOD SPECIMEN / Unknown Venipuncture / Unknown 05/02/2025 1:55 PM CDT 05/02/2025 2:02 PM CDT Mike Matt MD LAB - BLOOD ORDERABLES Final R esult LABORATORY [facility] [address], [address] [place] [address], [facility] [phone] * (ABNORMAL) Basic metabolic panel (05/02/2025 1:55 PM CDT) [facility] Sodium 138 135 - 145 mmol/L 05/02/2025 2:29 PM CDT LABORATORY Potassium 3.6 3.4 - 5.3 mmol/L 05/02/2025 2:29 PM CDT LABORATORY Chloride 100 98 - 107 mmol/L 05/02/2025 2:29 PM CDT LABORATORY Carbon Dioxide (CO2) 25 22 - 29 mmol/L 05/02/2025 2:29 PM CDT LABORATORY Anion Gap 13 7 - 15 mmol/L 05/02/2025 2:29 PM CDT LABORATORY Urea Nitrogen 8.0 6.0 - 20.0 mg/dL 05/02/2025 2:29 PM CDT LABORATORY Creatinine 1.20(H) 0.51 - 0.95 mg/dL 05/02/2025 2:29 PM CDT LABORATORY GFR Estimate 64 >60 mL/min/1.7 3m2 05/02/2025 2:29 PM CDT LABORATORY Comment:eGFR calculated us2020 CKD-EPI equation. Calcium 8.9 8.8 - 10.4 mg/dL 05/02/2025 2:29 PM CDT LABORATORY Glucose 96 70 - 99 mg/dL 05/02/2025 2:29 PM CDT LABORATORY Blood BLOOD SPECIMEN / Unknown Venipuncture / Unknown 05/02/2025 1:55 PM CDT 05/02/2025 2:02 PM CDT us Mike Matt MD LAB - BLOOD ORDERABLES Final R esult LABORATORY [facility] [address], [address] [place] [address], [place] [phone] * Urine Culture (05/02/2025 1:49 PM CDT) Culture 10,000-50,000 CFU/mL Mixture of Urogenital Bettye 05/03/2025 12:37 PM CDT [facility]AT[facility] Urine URINE SPECIMEN OBTAINED BY CLEAN CATCH PROCEDURE / Unknown Non-blood Collection / Unknown 05/02/2025 1:49 PM CDT 05/02/2025 2:04 PM CDT us Mike Matt MD LAB - MICRO GENERAL ORDERABLES Final Result [facility]ORAT[facility] [address] [facility], [address] [place] [id number] * (ABNORMAL) UA with Microscopic reflex to Culture (05/02/2025 1:49 PM CDT) Color Urine Yellow Colorless, Straw, Light Yellow, Yellow 05/02/2025 2:04 PM CDT LABORATORY Appearance Urine Clear Clear 05/02/20 2:04 PM CDT LABORATORY Glucose Urine Negative Negative mg/dL 05/02/2025 2:04 PM CDT LABORATORY Bilirubin Urine Negative Negative 2:04 PM CDT LABORATORY Ketones Urine 150(A) Negative mg/dL 05/02/2025 2:04 PM CDT LABORATORY Specific [place] Urine 1.027 1.003 - 1.035 05/02/2025 2:04 PM CDT LABORATORY Blood Urine Moderate(A) Negative 05/02/2025 2:04 PM CDT LABORATORY pH Urine 6.5 5.0 - 7.0 05/02/2025 2:04 PM CDT LABORATORY Protein Albumin Urine 20(A) Negative mg/dL 05/02/2025 2:04 PM CDT LABORATORY Urobilinogen Urine Normal Normal mg/dL 05/02/2025 2:04 PM CDT LABORATORY Nitrite Urine Negative Negative 05/02/2025 2:04 PM CDT LABORATORY Leukocyte Esterase Urine Negative Negative 05/02/2025 2:04 PM CDT LABORATORY Mucus Urine Present(A) None Seen /LPF 05/02/2025 2:04 PM CDT LABORATORY RBC Urine 59(H) <=2 /HPF 05/02/2025 2:04 PM CDT LABORATORY WBC Urine 19(H) <=5 /HPF 05/02/2025 2:04 PM CDT LABORATORY Squamous Epithelials Urine <1 <=1 /HPF 05/02/2025 2:04 PM CDT LABORATORY Urine URINE SPECIMEN OBTAINED BY CLEAN CATCH PROCEDURE / Unknown Non-blood Collection / Unknown 05/02/2025 1:49 PM CDT 05/02/2025 1:52 PM CDT Narrative LABORATORY - 05/02/2025 2:04 PM CDT Urine Culture ordered based on laboratory criteria us Mike Matt MD LAB - URINE ORDERABLES Final R esult LABORATORY [facility] Lab [address], [address] [place] [address], [facility] [phone] documented in this encounter Visit Diagnoses Diagnosis Renal colic documented in this encounter Administered Medications Inactive Administered Medications - up to 3 most recent administrations Medication Order MAR Action Action Date Dose Rate Site HYDROmorphone (PF) (DILAUDID) injection 0.5 mg 0.5 mg, Intravenous, EVERY 30 MIN PRN, moderate pain, severe pain, Starting on 05/02/25 at 1610, For 3 doses, Notify the provider to assess for uncontrolled pain or analgesic side effects. Hold while on IV SPIRITUAL MINISTER or with regular IV opioid dosing. $Given 05/02/2025 4:19 PM CDT 0.5 mg ketorolac (TORADOL) injection 15 mg 15 mg, Intravenous, ONCE, On 05/02/25 at 1400, For 1 dose, Can cause pain on injection. If ordered intravenously (IV) : administer through a running maintenance fluid over 1 minute followed by a flush. If patient complains of pain on injection, may dilute 15-30 mg in 5 mL and push over 1 to 2 minutes. $Given 05/02/2025 2:07 PM CDT 15 mg ondansetron (ZOFRAN) injection 4 mg 4 mg, Intravenous, EVERY 30 MIN PRN, nausea, vomiting, Administer over 2-5 Minutes, Starting on 05/02/25 at 1359, For 3 doses, May repeat in 30 minutes as needed, up to 3 doses. $Given 05/02/2025 2:07 PM CDT 4 mg sodium chloride 0.9% BOLUS 1,000 mL Intravenous, 1,000 mL, ONCE, at 1,000 mL/hr, Administer over 1 Hours, On 05/02/25 at 1400, For 1 dose $New Bag 05/02/2025 2:06 PM CDT 1,000 mLs 1000 mL/hr sodium chloride 0.9% BOLUS 1,000 mL Intravenous, 1,000 mL, ONCE, at 1,000 mL/hr, Administer over 1 Hours, On 05/02/25 at 1445, For 1 dose $New Bag 05/02/2025 2:44 PM CDT 1,000 mLs 1000 mL/hr documented in this encounter Active and Recently Administered Medications Times are shown in CDT. Scheduled Medication Order 04/30/2025 05/01/2025 05/02/2025 ketorolac (TORADOL) injection 15 mg (COMPLETED) 15 mg, Intravenous, ONCE, On 05/02/25 at 1400, For 1 dose, Can cause pain on injection. If ordered intravenously (IV) : administer through a running maintenance fluid over 1 minute followed by a flush. If patient complains of pain on injection, may dilute 15-30 mg in 5 mL and push over 1 to 2 minutes. 1407 ($Given - Provi bridgett: Avery Howard RN) sodium chloride 0.9% BOLUS 1,000 mL (COMPLETED) Intravenous, 1,000 mL, ONCE, at 1,000 mL/hr, Administer over 1 Hours, On 05/02/25 at 1400, For 1 dose 1406 ($New Bag - Pro vider: Avery Howard RN)1444 (Stopped - Provider: Rosey Ramirez RN) sodium chloride 0.9% BOLUS 1,000 mL (COMPLETED) Intravenous, 1,000 mL, ONCE, at 1,000 mL/hr, Administer over 1 Hours, On 05/02/25 at 1445, For 1 dose 1444 ($New Bag - Pro vider: Rosey Ramirez RN)1620 (Stopped - Provider: Ben Madden RN) PRN Medication Order 04/30/2025 05/01/2025 05/02/2025 HYDROmorphone (PF) (DILAUDID) injection 0.5 mg 0.5 mg, Intravenous, EVERY 30 MIN PRN, moderate pain, severe pain, Starting on 05/02/25 at 1610, For 3 doses, Notify the provider to assess for uncontrolled pain or analgesic side effects. Hold while on IV SPIRITUAL MINISTER or with regular IV opioid dosing. 1619 ($Given - Provi bridgett: Ben Madden RN) ondansetron (ZOFRAN) injection 4 mg 4 mg, Intravenous, EVERY 30 MIN PRN, nausea, vomiting, Administer over 2-5 Minutes, Starting on 05/02/25 at 1359, For 3 doses, May repeat in 30 minutes as needed, up to 3 doses. 1407 ($Given - Provi bridgett: Avery Howard RN) documented in this encounter Care Teams Senior Sustainability Advisor Relationship Specialty Start Date End Date No Ref-Primary, Physician PCP - General 04/24/25 documented as of this encounter
--- OUTSIDE RECORDS SUMMARY | 2025-05-05 16:00 | XMS_ITS | Encounter Summary ---
Author Organization [place] Address [facility] 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 Diagnoses Left ureteral calculus Nephrolithiasis Procedures XR KUB [[id number]] Ying Dowling APRN [employer] [address] [facility], [facility] [address] [place] [address] Phone: tel: fax: Referral ID Status Reason Start Date Expiration Date V isits Requested Visits Authorized [id number] Pending Review 05/05/2025 05/05/2026 1 1 Reason for Visit * Reason Comments New Patient Kidney stone * Consultation (Urgent: 3-5 Days) - Pending Review Specialty Diagnoses / Procedures Referred By Bal t Referred To Contact Urology Diagnoses Renal colic Mike Matt MD Referral ID Status Reason Start Date Expiration Date V isits Requested Visits Authorized [id number] Pending Review 05/02/2025 05/02/2026 1 1 Encounter Details Date Type Department Care Team (Late st Contact Info) Description 05/05/2025 4:00 PM CDT Virtual Visit [address] [place] [id number] Ying Dowling APRN [employer] [address] [facility], [facility] [address] [place] [address] Acute left flank pain (Primary Dx); Left ureteral calculus; Nephrolithiasis Social History Tobacco Use Types Packs/Day Years Used Date Smoking Tobacco: Never Assessed PHQ-2 Answer Date Recorded PHQ-2 Score 0 05/05/2025 Comments No Sex and Gender Information Value Date Recorded Sex Assigned at Not on file Legal Sex Female 7:31 AM CDT Gender Identity Not on file Sexual Orientation Not on file documented as of this encounter Patient Instructions * Patient Instructions* Ying Dowling APRN CNP - 05/05/2025 4:00 PM CDT UROLOGY CLINIC VISIT PATIENT INSTRUCTIONS It was a pleasure seeing you today! Thank you for giving us the opportunity to care for you. We hope we provided the excellent service you deserve and look forward to serving you again. Instructions per today's visit: Please contact [facility] Billing at [phone] or visit [email or web address] for more information. If you have any issues, questions, or concerns, please don't hesitate to contact us at [facility] at [phone] or via Black coin. Important Contact Information: -To each our nurse triage line, please call our contact center at [phone]. -Our clinic hours are Sunday through Sunday, 8:00 a.m. - 4:30 p.m. Feel free to call during these hours with any questions. -You can also contact us anytime via Black coin, and we will respond during clinic hours. Ying Dowling CNP Department of Urology Medicines to Control Your Kidney Stone Symptoms Control Pain: First Line Treatment Dramamine (Please use the drowsy version, nongeneric formulation) Available over the counter This medicine will cause increased drowsiness. DON???T DRIVE OR OPERATE MACHINERY FOR 6 HOURS How to take: Take 50 mg at bedtime every night until the stone passes In addition, take 50 mg every 6 hours as needed What it does: Decreases spasm of the ureter Decreases recurrence of pain for next 24 hours Decreases severe pain Decreases nausea Will help you sleep Ibuprofen (Advil or Motrin) Available over the counter Please do not take if advise to avoid NSAIDS, history of stomach ulcers/bleeding issues, blood thinners, or already on NSAIDS How to take: Take 2 to 4 (200 mg) tablets every 6 hours for the first 48 hours. After that, use only as needed What it does: Decreases pain Prevents spasm of the ureter Acetaminophen (Tylenol) Available over the counter How to Take: Take 2 (500 mg) tablets every 6 hours as needed. Do not exceed 8 tablets (4,000 mg total) in 24 hours What it does: Highly effective in controlling pain Control pain: second line treatment (if you still have severe pain 1 hour after trying all of the above) Narcotics (oxycodone) How to take Take 1 tablets every 6 hours as needed Narcotics have major side effects: Confusion, disorientation and sleepiness. DO NOT DRIVE OR OPERATE MACHINERY WITHIN 24 HOURS. Nausea. Take Dramamine, Zofran or Haldol to help control this. May cause constipation (hard, dry stools). Start [id number] Miralax (1/2 to 1 capful) as needed if experiencing constipation. Trouble sleeping Nausea: Ondansetron (Zofran) Take 4 mg every 6 hours as needed Use only for severe nausea Other medicines we may give you: Tamsulosin (Flomax): Take 0.4 mg daily with food What it does: May decrease stone pain May help stones pass faster May make surgery more successful by improving access to stone May decrease discomfort from ureteral stent, if used Possible side effects: Lightheadedness when standing too quickly (especially in older people) Stuffy nose documented in this encounter Progress Notes * Ying Dowling APRN CNP - 05/05/2025 4:00 PM CDT Urology Video Office Visit Video-Visit Details Type of service: Video Visit Video Start Time: 1130 5Video End Time: 1144 Originating Location (pt. Location): Home Distant Location (provider location): Off-site Platform used for Video Visit: Jacob Assessment and Plan: Assessment:25 year old female with a left 5mm distal ureteral stone. Plan: -Reviewed CT scan with patient. Noted left distal ureteral stone. -We discussed treatment options including observation with MET x 4 weeks vs ureteroscopy and laser lithotripsy. I counseled the patient regarding the potential need for a ureteral stent after treatment and the necessity of removing the stent after surgery. After discussing risks and benefits, the nenita baig opts for MET x 4 weeks due to insurance coverage concerns. -Please use acetaminophen, ibuprofen, dimenhydrinate, and oxycodone PRN for pain control. Please continue with tamsulosin 0.4mg daily to help with stone passage. -If having severe flank pain, fevers >101.0F, chills, nausea, or vomiting please notify Urology clinic or be seen in the ER. -RTC In 4 weeks with KUB or sooner PRN. Ying Dowling CNP Department of Urology May 05, 2025 I spent a total of 25 minutes spent on the date of the encounter doing chart review, history and exam, documentation, and further activities as noted above. Chief Complaint: Left Ureteral Stone History of Present Illness: Marilu Melendez is a pleasant 25 year old female who presents with concerns of a left ureteral stone. Ms. Melendez was seen in the ED on 04/24/25 for concerns of gross hematuria and abdominal pain. CT scan on 04/24/25 (images personally reviewed) revealed a left 5mm distal ureteral stone with hydronephrosis. No noted left renal stones. No noted right hydronephrosis or nephrolithiasis. She notes ongoing flank pain. Is using ibuprofen and oxycodone PRN for pain control. She is using tamsulosin to help with stone passage. Denies any fevers. Positive for chills. Positive for nausea but able to tolerate fluids. Denies anygross hematuria or dysuria. This is her first stone epiosde. Family history of nephrolithiasis in mother. Stone Risk Factors: Questionable episode of gout in the past-noted big toe was swollen and was painful. Past Medical History: No past medical history on file. Past Surgical History: No past surgical history on file. Medications Current Outpatient Medications Medication Sig Dispense Refill ibuprofen (ADVIL/MOTRIN) 600 MG tablet Take 1 tablet (600 mg) by mouth every 6 hours as needed for other (pain, aches, fever). Take with food. 30 tablet 0 ondansetron (ZOFRAN ODT) 4 MG ODT tab Take 1 tablet (4 mg) by mouth every 8 hours as needed for nausea or vomiting. 15 tablet 0 oxyCODONE (ROXICODONE) 5 MG tablet Take 1 tablet (5 mg) by mouth every 6 hours as needed for pain. 12 tablet 0 polyethylene glycol (MIRALAX) 17 GM/Dose powder Take 17 g (1 Capful) by mouth daily. 527 g 0 No current facility-administered medications for this visit. Family History: No family history on file. Social History: Social History Socioeconomic History Marital status: Single Spouse name: Not on file Number of children: Not on file Years of education: Not on file Highest education level: Not on file Occupational History Not on file Tobacco Use Smoking status: Not on file Smokeless tobacco: Not on file Substance and Sexual Activity Alcohol use: Not on file Drug use: Not on file Sexual activity: Not on file Other Topics Concern Not on file Social History Narrative Not on file Social Drivers of Health Financial Resource Strain: Not on file Food Insecurity: Not on file Transportation Needs: Not on file Physical Activity: Not on file Stress: Not on file Social Connections: Unknown (11/09/2023) Received from [facility] [employer] [facility] Social Connections Frequency of Communication with Friends and Family: Not on file Interpersonal Safety: Not on file Housing Stability: Not on file Allergies: Patient has no known allergies. Review of Systems: From intake questionnaire Negative 14 system review except as noted on HPI, nurse's note. Physical Exam: General Appearance: Well groomed, hygenic Eyes: No redness, discharge Respiratory: No cough, no respiratory distress or labored breathing Musculoskeletal: Grossly normal, full range of motion in upper extremities, no gross deficits Skin: No discoloration or apparent rashes Neurologic - No tremors Psychiatric - Alert and oriented The rest of a comprehensive physical examination is deferred due to video visit restrictions Labs: I personally reviewed all applicable laboratory data and went over findings with patient Significant for: CBC RESULTS: Recent Labs Lab Test 05/02/25 1355 04/24/25 0745 WBC 9.6 13.5* HGB 14.3 15.7 PLT 315 340 BMP RESULTS: Recent Labs Lab Test 05/02/25 1355 04/24/25 0745 NA 138 138 POTASSIUM 3.6 3.8 CHLORIDE 100 101 CO2 25 20* ANIONGAP 13 17* GLC 96 116* BUN 8.0 12.3 CR 1.20* 0.90 GFRESTIMATED 64 90 CHECO 8.9 9.4 UA RESULTS: Recent Labs Lab Test 05/02/25 1349 04/24/25 0845 SG 1.027 1.011 URINEPH 6.5 6.0 NITRITE Negative Negative RBCU 59* >182* WBCU 19* 22* CALCIUM RESULTS Lab Results Component Value Date CHECO 8.9 05/02/2025 CHECO 9.4 04/24/2025 Imaging: I personally reviewed all applicable imaging and went over the below findings with patient. US Renal Complete Non-Vascular Narrative EXAM: US RENAL COMPLETE NON-VASCULAR LOCATION: [facility] DATE: 04/24/2025 INDICATION: hematuria, ? obstruction vs pyelo COMPARISON: None. TECHNIQUE: Routine Bilateral Renal and Bladder Ultrasound. FINDINGS: RIGHT KIDNEY: 9.0 cm. Normal without hydronephrosis or masses. LEFT KIDNEY: 11.0 cm. Normal cortical thickness. Mild hydronephrosis. No perinephric fluid collections. BLADDER: Decompressed without significant wall thickening. Bilateral ureteral jets are identified. Impression IMPRESSION: 1. Mild left hydronephrosis. Differential could include ureteral calculus, ureteral stricture, reflux, or ascending UTI/pyelonephritis. Depending on clinical scenario, consider noncontrast CT (if high clinical suspicion for calculus) or CT urogram for further evaluation. 2. Normal right kidney. 3. Mild hepatic steatosis noted. Abd/pelvis CT no contrast - Stone Protocol Narrative EXAM: CT ABDOMEN PELVIS W/O CONTRAST LOCATION: [facility] DATE: 04/24/2025 INDICATION: L flank pain, [...] mm distal ureteral calculus just proximal to theUVJ. No other urinary tract calculi. Normal-sized kidneys. No right-sided hydronephrosis. No bladder wall thickening. BOWEL: No obstruction or inflammatory change. Normal appendix. LYMPH NODES: No lymphadenopathy. VASCULATURE: Normal caliber. PELVIC ORGANS: Small likely physiologic follicle/cyst right ovary, see prior ultrasound report. Trace physiologic amount free fluid. MUSCULOSKELETAL: Unremarkable. Impression IMPRESSION: 1. Mild left hydronephrosis due to 5 mm distal ureteral calculus. 2. No other urinary tract calculi. 3. Hepatic steatosis. documented in this encounter Plan of Treatment Scheduled Orders Name Type Priority Associated Diagnoses Orde r Schedule XR KUB [[id number]] Imaging Routine Left ureteral calculus Nephrolithiasis Expected: 06/02/2025 (Approximate), Expires: 05/05/2026 documented as of this encounter Visit Diagnoses Diagnosis Acute left flank pain- Primary Abdominal pain, unspecified site Left ureteral calculus Calculus of ureter Nephrolithiasis Calculus of kidney documented in this encounter Care Teams Pl[employer] Fabricator Relationship Specialty Start Date End Date No Ref-Primary, Physician PCP - General 04/24/25 Ying Dowling APRN [employer] [address] [place] [id number] Nurse Practitioner Urology 05/05/25 documented as of this encounter
[2025-05-26 15:29] VITALS: BP 131/89; PULSE 84; RESP 18; TEMP 36.8; O2SAT 99; BMI 24.2
--- NOTE | 2025-05-26 16:45 | ED_ITS ---
HPI - Wound/Laceration General Date Seen: 05/26/25 Chief Complaint: Laceration/Wound Stated Complaint: cuts on top right side of forehead Time Seen by Provider: 05/26/25 16:00 Source: patient Mode of arrival: ambulatory Limitations: no limitations History of Present Illness HPI narrative: Patient is a 25-year-old female presenting to the emergency department today for laceration to her forehead. She was at work when she hit her head on a piece of metal sticking out the back of a truck. She then started to bleed and was brought to the emergency department by a co-worker. Bleeding has since stopped. Denies any other injuries. No other concerns noted. States her last tetanus shot was 1 year ago Related Data Allergies Allergy/AdvReac Type Severity Reaction Status Date / Time No Known Drug Allergies Allergy Verified 05/26/25 15:29 Review of Systems Narrative: Pertinent systems reviewed and were negative unless stated in HPI Exam Narrative: Exam Narrative: Const: Well-nourished, Well-developed, in now distress Eyes: PERRL, no conjunctival injection, and symmetrical lids HENT: Atraumatic external nose and ears. Moist mucous membranes. 1.5 cm linear laceration above right eyebrow with a 3 cm zigzag laceration next to it MSK:Extremities w/o deformity, Normal Active ROM Skin: Warm, Dry. No rashes or lesions. Neuro: Normal Muscle tone, No focal neurological deficits. Psych: Awake, Alert, & Oriented x3. Appropriate mood and affect. Const: Vital Signs, click to edit/add: Vital Signs - 24 hr 05/26/25 15:29 Temperature 98.2 F Pulse Rate [Pulse Oximeter] 84 Respiratory Rate 18 Blood Pressure [Ri ght Upper Arm] 131/89 Pulse Oximetry 99 Oxygen Delivery Me thod Room Air Course Vital Signs Vital signs: Initial Vital Signs Temperature 98.2 F 05/26/25 15:29 Temperature Source Temporal Artery Scan 05/26/25 15:29 Pulse Rate 84 05/26/25 15:29 Respiratory Rate 18 05/26/25 15:29 Blood Pressure 131/89 05/26/25 15:29 Blood Pressure Mean 103 05/26/25 15:29 Pulse Oximetry 99 05/26/25 15:29 Oxygen Delivery Method Room Air 05/26/25 15:29 Vital Signs Temperature 98.2 F 05/26/25 15:29 Pulse Rate 84 05/26/25 15:29 Respiratory Rate 18 05/26/25 15:29 Blood Pressure 131/89 05/26/25 15:29 Pulse Oximetry 99 05/26/25 15:29 Oxygen Delivery Method Room Air 05/26/25 15:29 Temperature 98.2 F 05/26/25 15:29 Pulse Rate 84 05/26/25 15:29 Respiratory Rate 18 05/26/25 15:29 Blood Pressure 131/89 05/26/25 15:29 Pulse Oximetry 99 05/26/25 15:29 Oxygen Delivery Method Room Air 05/26/25 15:29 MDM - Wound/Laceration MDM Narrative Medical decision making narrative: Patient is a 25-year-old female presenting for laceration to her right forehead. There are 2 separate lacerations. Initially on my exam there appeared rather superficial but on further examination I was able pull the edges apart and bleeding restarted. I will put the patient skin glue versus sutures explained sutures likely have a better scar appearance. She chose to do sutures. She is up-to-date on her tetanus. See procedure note. She tolerated the procedure well. Considering this is a facial laceration she is a relatively low risk before infection and antibiotics are not indicated. She will be discharged Discharge Plan Discharge Clinical Impression: Laceration Patient Disposition: Home, Self-Care Condition: Stable Instructions: Head Laceration (ED) Additional Instructions: Follow-up with your primary care provider or urgent care in the next 7 days to have the 9 (3 and smaller wound and 6 in larger) sutures removed. For next 6 months, once sutures are removed, whenever you go outside put a dab of sunscreen over the laceration site to improve scar appearance. Topical antibiotics are not necessary at this time. Patient can shower but do not submerge the laceration until sutures are removed Follow Up/Referrals: Provider,Not a Local [Primary Care Provider, Family Practice] Stand Alone Forms: [facility] Info Instructions Procedures Laceration Laceration 1: Name of person performing procedure: Israel Ding Site: face Side (If applicable): right Size (cm): 1.5 Description: linear Depth: simple, single layer Local Anesthetic: lidocaine 1% and with epi Amount of anesthesia used (mL): 1 Pre-repair: wound explored, irrigated extensively and deep structures intact Skin layer closed with: nylon Size (cm): 6-0 Number of sutures: 3 Technique: simple, interrupted Estimated blood loss (if any): none Conclusion: patient tolerated procedure Laceration 2: Name of person performing procedure: Israel Ding Site: face Side (If applicable): right Size (cm): 3 Description: irregular Depth: simple, single layer Local Anesthetic: lidocaine 1% and with epi Amount of anesthesia used (mL): 2 Pre-repair: wound explored, irrigated extensively and deep structures intact Skin layer closed with: nylon Size (cm): 6-0 Number of sutures: 6 Technique: simple, interrupted Conclusion: patient tolerated procedure
--- OUTSIDE RECORDS SUMMARY | 2025-05-26 16:46 | XMS_ITS | Clinical Summary ---
Author Organization [place] Address [address] [facility] [place] [address] Care Team Providers Care Type Disk Quality Control Supervisor Name Role Phone No Ref-Primary, Physician Primary Care Provider Ying Dowling APRN BODY HANGER Unavailable [phone] Allergies No known active allergies Medications ibuprofen (ADVIL/MOTRIN) 600 MG tablet Take 1 tablet (600 mg) by mouth every 6 hours as needed for other (pain, aches, fever). Take with food. 30 tablet 05/02/20 25 Active ondansetron (ZOFRAN ODT) 4 MG ODT tab Take 1 tablet (4 mg) by mouth every 8 hours as needed for nausea or vomiting. 15 tablet 05/02/20 25 Active oxyCODONE (ROXICODONE) 5 MG tablet Take 1 tablet (5 mg) by mouth every 6 hours as needed for pain. 12 tablet 05/02/20 25 Active Additional Information Patient not taking.Reported on 05/05/2025 acetaminophen (TYLENOL) 500 MG tabletIndicati ons:Acute left flank pain,Left ureteral calculus,Nephr olithiasis Take 1-2 tablets (500-1,000 mg) by mouth every 6 hours as needed for mild pain. 120 tablet 05/05/20 25 Active ibuprofen (ADVIL/MOTRIN) 600 MG tabletIndicati ons:Acute left flank pain,Left ureteral calculus,Nephr olithiasis Take 1 tablet (600 mg) by mouth every 6 hours as needed for moderate pain. 120 tablet 05/05/20 25 Active dimenhyDRINATE (DRAMAMINE) 50 MG tabletIndicati ons:Acute left flank pain,Left ureteral calculus,Nephr olithiasis Take 1 tablet (50 mg) by mouth nightly as needed for other (kidney stone pain). 30 tablet 05/05/20 Active tamsulosin (FLOMAX) 0.4 MG capsuleIndicat ions:Acute left flank pain TAKE 1 CAPSULE(0.4 MG) BY MOUTH DAILY 90 capsule 05/06/20 Active oxyCODONE (ROXICODONE) 5 MG tablet Take 1 tablet (5 mg) by mouth every 6 hours as needed for moderate to severe pain. 6 tablet 04/24/20 25 025 ondansetron (ZOFRAN ODT) 4 MG ODT tab Take 1 tablet (4 mg) by mouth every 6 hours as needed for nausea or vomiting. 10 tablet 04/24/20 25 025 polyethylene glycol (MIRALAX) 17 GM/Dose powder Take 17 g (1 Capful) by mouth daily. 527 g 04/24/20 25 025 tamsulosin (FLOMAX) 0.4 MG capsule Take 1 capsule (0.4 mg) by mouth daily for 10 doses. 10 capsule 04/24/20 25 025 oxyCODONE (ROXICODONE) 5 MG tablet Take 1 tablet (5 mg) by mouth every 6 hours as needed for pain. 12 tablet 05/02/20 25 025 Discontinued ibuprofen (ADVIL/MOTRIN) 600 MG tablet Take 1 tablet (600 mg) by mouth every 6 hours as needed for other (pain, aches, fever). Take with food. 30 tablet 05/02/20 25 025 Discontinued ondansetron (ZOFRAN ODT) 4 MG ODT tab Take 1 tablet (4 mg) by mouth every 8 hours as needed for nausea or vomiting. 15 tablet 05/02/20 25 025 Discontinued oxyCODONE (ROXICODONE) 5 MG tabletIndicati ons:Acute left flank pain,Left ureteral calculus,Nephr olithiasis Take 1 tablet (5 mg) by mouth every 6 hours as needed for pain. 12 tablet 05/05/20 25 025 tamsulosin (FLOMAX) 0.4 MG capsuleIndicat ions:Acute left flank pain Take 1 capsule (0.4 mg) by mouth daily. 30 capsule 05/05/20 25 025 Discontinued Encounters Date Type Department Care Team Description 05/22/2025 MyC Medical Advice [address] [phone] Ying Dowling, FLOTATION TENDER BODY HANGER Nephrolithiasis (Primary Dx) 05/05/2025 4:00 PM CDT Virtual Visit [address] [phone] Ying Dowling, FLOTATION TENDER BODY HANGER Acute left flank pain (Primary Dx); Left ureteral calculus; Nephrolithiasis 05/05/[address] [phone] Ying Dowling, FLOTATION TENDER BODY HANGER Medication Refill 05/05/[address] [phone] Ying Dowling, FLOTATION TENDER BODY HANGER Same Day Appointment 05/03/2025 Results Follow-Up [facility] Nurse Advisors [address] [place] [phone] Baylee Lazo RN 05/02/2025 1:30 PM CDT - 05/02/2025 6:22 PM CDT Emergency [facility] Emergency Dept [address] [place] [phone] Mike Matt MD Renal colic Discharge Disposition: Home or Self Care 05/02/2025 Travel 04/26/2025 Results Follow-Up [facility] Nurse Advisors [address] [place] [phone] Leslie Hoffman RN 04/24/2025 7:32 AM CDT - 04/24/2025 1:16 PM CDT Emergency [facility] Emergency Dept [address] [place] [phone] Jagdish Neri MD Hydronephrosis with urinary obstruction due to ureteral calculus; Right ovarian cyst Discharge Disposition: Home or Self Care 04/24/2025 Travel from Last 3 Months Social History Tobacco Use Types Packs/Day Years Used Date Smoking Tobacco: Never Assessed PHQ-2 Answer Date Recorded PHQ-2 Score 0 05/05/2025 Comments No Sex and Gender Information Value Date Recorded Sex Assigned at Not on file Legal Sex Female 7:31 AM CDT Gender Identity Not on file Sexual Orientation Not on file Last Filed Vital Signs Vital Sign Reading [...] Mass Index 27.27 05/02/2025 12:52 PM CDT Plan of Treatment Health Maintenance Due Date Last Done Comments ADVANCE CARE PLANNING 1999 ANNUAL REVIEW OF HM ORDERS 1999 HPV VACCINE (1 - 3-dose series) 2014 HEPATITIS B VACCINE (1 of 3 - 19+ 3-dose series) 2018 DTAP/TDAP/TD VACCINE (2 - Tdap) 01/17/2024 COVID-19 VACCINE (1 - 2023-2 5 season) 2024 YEARLY PREVENTIVE VISIT 11/09/2024 11/09/2023 INFLUENZA VACCINE (#1) 2025 PAP 11/09/2026 11/09/2023 ZOSTER VACCINE (1 of 2) 2049 HEPATITIS C SCREENING Completed 11/09/2023 HIV SCREENING Completed 11/09/2023 PHQ-2 (once per calendar year) Completed 05/05/2025 MENINGITIS VACCINE Aged Out No longer eligible based on patient's age to complete this topic PNEUMOCOCCAL VACCINE: PEDIAT RICS (0 to 5 YEARS) AND AT-RISK PATIENTS (6 to 49 YEARS) Aged Out No longer eligi ble based on patient's age to complete this topic Procedures Procedure Name Priority Date/Time Associated Diagnosis Comments CBC WITH PLATELETS & DIFFERENTIAL STAT 05/02/2025 1:55 PM CDT CBC WITH PLATELETS AND DIFFERENTIAL STAT 05/02/2025 1:55 PM CDT BASIC METABOLIC PANEL STAT 05/02/2025 1:55 PM CDT URINE CULTURE STAT 05/02/2025 1:49 PM CDT ROUTINE UA WITH MICROSCOPIC REFLEX TO CULTURE STAT 05/02/2025 1:[address] ABDOMEN PELVIS W/O CONTRAST STAT 04/24/2025 11:52 AM CDT US RENAL COMPLETE NON-VASCULAR STAT 04/24/2025 10:48 AM CDT US PELVIS COMPLETE W TRANSVAGINAL AND DOPPLER LIMITED STAT 04/24/2025 9:49 AM CDT URINE CULTURE Add-On 04/24/2025 8:45 AM CDT ROUTINE UA WITH MICROSCOPIC STAT 04/24/2025 8:45 AM CDT CBC WITH PLATELETS & DIFFERENTIAL STAT 04/24/2025 7:45 AM CDT HCG QUANTITATIVE STAT 04/24/2025 7:45 AM CDT CBC WITH PLATELETS AND DIFFERENTIAL STAT 04/24/2025 7:45 AM CDT HCG QUALITATIVE STAT 04/24/2025 7:45 AM CDT BASIC METABOLIC PANEL STAT 04/24/2025 7:45 AM CDT from Last 3 Months Results * CBC with platelets and differential (05/02/2025 1:55 PM CDT) Only the most recent of2 resultswithin the time period is included. WBC Count 9.6 4.0 - 11.0 10e3/uL [...] - BLOOD ORDERABLES Final R esult LABORATORY [facility] [address] floor, [address] [place] [address], [facility] [phone] * (ABNORMAL) Basic metabolic panel (05/02/2025 1:55 PM CDT) Only the most recent of2 resultswithin the time period is included. Sodium 138 135 - 145 mmol/L 05/02/2025 [...] 05/02/2025 2:29 PM CDT LABORATORY Comment:eGFR calculated 2020 CKD-EPI equation. Calcium 8.9 8.8 - 10.4 mg/dL 05/02/2025 2:29 PM CDT LABORATORY Glucose 96 70 - 99 mg/dL 05/02/2025 2:29 PM CDT LABORATORY Blood BLOOD SPECIMEN / Unknown Venipuncture / Unknown 05/02/2025 1:55 PM CDT 05/02/2025 2:02 PM CDT us Mike Matt MD LAB - BLOOD ORDERABLES Final R esult LABORATORY [facility] [address], [address] [place] [address], [facility] [phone] * (ABNORMAL) UA with Microscopic reflex to Culture (05/02/2025 1:49 PM CDT) Color Urine Yellow Colorless, Straw, Light Yellow, Yellow 05/02/2025 2:04 PM CDT LABORATORY Appearance Urine Clear Clear 05/02/20 25 2:04 PM CDT LABORATORY Glucose Urine Negative Negative mg/dL 05/02/2025 2:04 PM CDT LABORATORY Bilirubin Urine Negative Negative 2:04 PM CDT LABORATORY Ketones Urine 150(A) Negative mg/dL 05/02/2025 2:04 PM CDT LABORATORY [place] Urine 1.027 1.003 - 1.035 05/02/2025 2:04 [...] - URINE ORDERABLES Final R esult LABORATORY [facility] [address], [address] [place] [address], [facility] [phone] * Urine Culture (05/02/2025 1:49 PM CDT) Only the most recent of2 resultswithin the time period is included. Culture 10,000-50,000 CFU/mL Mixture of Urogenital Bettye 05/03/2025 12:37 PM CDT [facility] LABORATORY Urine URINE SPECIMEN OBTAINED BY CLEAN CATCH PROCEDURE / Unknown Non-blood Collection / Unknown 05/02/2025 1:49 PM CDT 05/02/2025 2:04 PM CDT us Mike Matt MD LAB - MICRO GENERAL ORDERABLES Final Result [facility] LABORATORY [facility] Inf. Diseases Diag. Lab [address] [facility] [place] [address], [place] * Abd/pelvis CT no contrast - Stone [...] EXAM: CT ABDOMEN PELVIS W/O CONTRAST LOCATION: [facility] DATE: 04/24/2025 INDICATION: L flank pain, [...] EXAM: CT ABDOMEN PELVIS W/O CONTRAST LOCATION: [facility] DATE: 04/24/2025 INDICATION: L flank pain, [...] CDT EXAM: US RENAL COMPLETE NON-VASCULAR LOCATION: [facility] DATE: 04/24/2025 INDICATION: hematuria, ? obstruction [...] 04/24/2025 EXAM: US RENAL COMPLETE NON-VASCULAR LOCATION: [facility] DATE: 04/24/2025 INDICATION: hematuria, ? obstruction [...] COMPLETE W TRANSVAGINAL AND DOPPLER LIMITED LOCATION: [facility] DATE: 04/24/2025 INDICATION: Lower abdominal pain. [...] COMPLETE W TRANSVAGINAL AND DOPPLER LIMITED LOCATION: [facility] DATE: 04/24/2025 INDICATION: Lower abdominal pain. [...] other acute abnormality. us Jagdish Neri MD [facility] US ORDERABLES Final R esult * (ABNORMAL) UA with Microscopic (04/24/2025 8:45 AM CDT) Color Urine Straw Colorless, Straw, Light Yellow, Yellow 04/24/2025 9:17 AM CDT LABORATORY Appearance Urine Clear Clear 04/24/20 25 9:17 AM CDT LABORATORY Glucose Urine Negative Negative mg/dL 04/24/2025 9:17 AM CDT LABORATORY Bilirubin Urine Negative Negative 9:17 AM CDT LABORATORY Ketones Urine 20(A) Negative mg/dL 04/24/2025 9:17 AM CDT LABORATORY Specific [place] Urine 1.011 1.003 - 1.035 04/24/2025 9:17 [...] - URINE ORDERABLES Fi nal Result LABORATORY [facility] [address], [address] [place] [address], [facility] [phone] * HCG QUALitative (blood) (04/24/2025 7:45 AM CDT) hCG Serum Qualitative Negative Negative VIANEY 04/24/2025 8:08 AM CDT LABORATORY Comment:This test is for scr eening purposes. Results should be interpreted along with the clinical picture. Confirmation testing is available if warranted by ordering [id number], HCG Quantitative . Blood BLOOD SPECIMEN / Unknown Venipuncture / Unknown 04/24/2025 7:45 AM CDT 04/24/2025 7:47 AM CDT Jagdish Neri MD LAB - BLOOD ORDERABLES Fi nal Result LABORATORY [facility] [address], [address] [place] [address], [facility] [phone] * HCG quantitative (blood) (04/24/2025 7:45 AM CDT) hCG Quantitative <1 <5 mIU/mL 04/24/20 8:36 AM CDT LABORATORY Comment: Adult: 0-5 mIU/mL for healthy non- person Neonates: Should be within normal ranges by 2 days after Blood BLOOD SPECIMEN / Unknown Venipuncture / Unknown 04/24/2025 7:45 AM CDT 04/24/2025 7:47 AM CDT Jagdish Neri MD LAB - BLOOD ORDERABLES Fi nal Result LABORATORY [facility] [address], [address] [place] [address], [facility] [phone] from Last 3 Months Insurance CANDICE ARREOLA KATHY [id number] CANDICE ARREOLA Care Teams Type Disk Quality Control Supervisor Relationship Specialty Start Date End Date No Ref-Primary, Physician PCP - General 04/24/25 Ying Dowling, FLOTATION TENDER BODY HANGER [address] [place] [address], [facility] [address] [place] [address] Nurse Practitioner Urology 05/05/25
--- OUTSIDE RECORDS SUMMARY | 2025-05-26 16:46 | XMS_ITS | Encounter Summary ---
Author Organization [place] Address [facility] [place] [address] Care Team Providers Care Senior Project Coordinator Name Role Phone No Ref-Primary, Physician Primary Care Provider Encounter Details Date Type Department Care Team (Latest Contact Info) Description 04/24/2025 Travel Social History Tobacco Use Types Packs/Day Years Used Date Smoking Tobacco: Never Assessed Comments No Sex and Gender Information Value Date Recorded Sex Assigned at Not on file Legal Sex Female 7:31 AM CDT Gender Identity Not on file Sexual Orientation Not on file documented as of this encounter Plan of Treatment Not on file documented as of this encounter Visit Diagnoses Not on filedocumented in this encounter Care Teams Senior Project Coordinator Relationship Specialty Start Date End Date No Ref-Primary, Physician PCP - General 04/24/25 documented as of this encounter
--- OUTSIDE RECORDS SUMMARY | 2025-05-26 16:46 | XMS_ITS | Encounter Summary ---
Author Organization [place] Address [facility] [place] [address] Care Team Providers Care Stock Handler Floorperson Name Role Phone No Ref-Primary, Physician Primary Care Provider Encounter Details Date Type Department Care Team (Latest Contact Info) Description 05/02/2025 Travel Social History Tobacco Use Types Packs/Day [...] on filedocumented in this encounter Care Teams Stock Handler Floorperson Relationship Specialty Start Date End Date No Ref-Primary, Physician PCP - General 04/24/25 documented as of this encounter
--- OUTSIDE RECORDS SUMMARY | 2025-05-26 16:46 | XMS_ITS | Clinical Summary ---
Author Organization [facility] Address [address] [place] [id number] Care Team Providers Care Watershed Program Manager Name Role Phone Clinic, No Pcp Or Primary Care Provider Unavaila ble Allergies No known active allergies Medications norgestimate-eth inyl estradioL (Ortho Tri-Cyclen, 28,) 0.18/0.215/0.25 mg-35 mcg (28) tabletIndication s:BCP ( control pills) initiation Take 1 Tablet by mouth once daily. 84 Tablet 3 11/09/2023 Active albuterol HFA (PRO-AIR; VENTOLIN; PROVENTIL) 90 mcg/actuation inhalerIndicatio ns:Cough, unspecified type Inhale 2 Puffs by mouth 4 times daily. 1 Each 2 11/09/2023 Active inhalational spacing deviceIndication s:Cough, unspecified type For home use. 1 Each 11/09/2023 Active sertraline (ZOLOFT) 50 mg tabletIndication s:Depression, major, single episode, mild Take 1 Tablet (50 mg) by mouth once daily in the morning. 90 Tablet 1 06/03/2024 Active Active Problems Problem Noted Date Diagnosed Date Pap smear for cervical cancer screening 11/20/19 24 Overview (11/20/2023): 10/2023 NIL Plan: PAP/HPV due 10/2026 Family History Medical History Relation Name Comments Diabetes Mother Cancer-breast Other Relation Name Status Comments Father Alive Mother Alive Other Social History Tobacco Use Types Packs/Day Years Used Date Smoking Tobacco: Never Smokeless Tobacco: Never Tobacco Cessation:Counseling Given: Not Answered Alcohol Use Standard Drinks/Week Comments Yes 2 (1 standard drink = 0.6 oz pur e alcohol) PHQ-2 Answer Date Recorded PHQ-2 TOTAL SCORE 5 06/03/2024 Social Connections Answer Date Recorded Frequency of Communication with Friends and Fami ly Not on file 11/09/2023 Comments Unknown Sex and Gender Information Value Date Recorded Sex Assigned at Not on file Legal Sex Female 3:51 PM GARMENT PRESSER Gender Identity Not on file Sexual Orientation Not on file 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 Not on file Not on file Not on file Obstetrics History Last Filed Vital Signs Vital Sign Reading Time Taken Comments Blood Pressure 100/70 12/21/2023 8:12 AM GARMENT PRESSER Pulse 80 12/21/2023 8:12 AM GARMENT PRESSER Temperature 36.6 C (97.9 F) 11/09/2023 7:53 AM GARMENT PRESSER Respiratory Rate 16 12/21/2023 8:12 AM GARMENT PRESSER Oxygen Saturation - - Inhaled Oxygen Concentration - - Weight 55.3 kg (122 lb) 12/21/2023 8:12 AM GARMENT PRESSER Height 153.7 cm (5' 0.5) 11/09/2023 7:53 AM GARMENT PRESSER Body Mass Index 23.43 11/09/2023 7:53 AM GARMENT PRESSER Plan of Treatment Health Maintenance Due Date Last Done Comments Tetanus booster 2010 HPV series for age 9-26 (1 - 3-dose series) 2014 Hepatitis B series for 19+ (1 of 3 - 19+ 3-dose series) 2018 COVID-19 vaccine series ( season) 2024 BMI (ht and wt on same day) for age 18+ 11/09/2024 11/09/2023 Depression screening for age 12+ 06/03/2025 06/03/2024, 12/21/2023, 11/09/2023, Additional history exists Influenza Vaccine (#1) 2025 Pap test for age 21-65 11/09/2026 11/09/2023 HIV for age 15-65 Completed 11/09/2023 Hepatitis C screening for age 18-79 Completed 11/09/2023 Pneumococcal series for age 6-49 Aged Out No longer eligible based on patient's age to complete this topic Procedures Procedure Name Priority Date/Time Associated Diagnosis Comments ANTI HIV 2 Routine 11/09/2023 9:04 AM GARMENT PRESSER Screen for STD (sexually transmitted disease) ANTI HCV Routine 11/09/2023 9:04 AM GARMENT PRESSER Screen for STD (sexually transmitted disease) HVAC RESIDENTIAL SERVICE TECHNICIAN THIN PREP PAP SCREEN IMAGED Routine 11/09/2023 7:30 AM GARMENT PRESSER Pap smear for cervical cancer screening from Last 3 Months or Most Recently Relevant to Health Maintenance Results * ANTI HCV (11/09/2023 9:04 AM GARMENT PRESSER) HEPATITIS C ANTIBODY Non-Reacti ve Non-React marilou 11/09/2023 10:48 PM GARMENT PRESSER [facility] TRAL LABORATORY Comment:Please note, per www .CDC.gov: If a patient is known to be at high risk of HCV infection, or is symptomatic, and the physician's suspicion of HCV infection is high, HCV RNA testing is often employed and is of diagnostic value, even after an initial negative anti-HCV test result. Blood BLOOD SPECIMEN / Unknown Venipuncture / Unknown 11/09/2023 9:04 AM GARMENT PRESSER 11/09/2023 9:06 AM GARMENT PRESSER Inder Juares MD SEND OUTS Final Result [facility] [address] [place] [address], * ANTI HIV 1/2 (11/09/2023 9:04 AM GARMENT PRESSER) Pathologist [facility] HIV-1/HIV-2 SCREEN Non-Reacti ve Non-Reacti ve 11/09/2023 3:37 PM GARMENT PRESSER [facility] TRAL LABORATORY Comment:HIV-1 p24 and HIV-1/ HIV-2 Ab Not Detected. Blood BLOOD SPECIMEN / Unknown Venipuncture / Unknown 11/09/2023 9:04 AM GARMENT PRESSER 11/09/2023 9:06 AM GARMENT PRESSER Inder Juares MD SEND OUTS Final Result [facility] [address] [place] [address], [place] * HVAC RESIDENTIAL SERVICE TECHNICIAN THIN PREP PAP SCREEN IMAGED (11/09/2023 7:30 AM GARMENT PRESSER) Case Report Gynecologic Cytology Report Case: [id number] Authorizing Provider: Inder Juares, Collected: 11/09/2023 0730 Ordering Location: [facility] Received: 11/09/2023 0949 Clinic First Screen: Мария Haq Specimen: HVAC RESIDENTIAL SERVICE TECHNICIAN ThinPrep Vial Screening, Cervical 11/20/2023 9:52 AM GARMENT PRESSER [facility] [employer] [facility] ENTRAL LABORATORY INTERPRETATION/ RESULT NEGATIVE FOR INTRAEPITHELIAL LESION OR MALIGNANCY (NIL) (none) 11/20/2023 9:52 AM GARMENT PRESSER [facility] ENTRAL LABORATORY at 0952 GARMENT PRESSER SPECIMEN ADEQUACY Satisfactory for evaluation Endocervical component present 11/20/2023 9:52 AM GARMENT PRESSER [facility] ENTRAL LAB[facility]ATORY Date of LMP 10/23/2023 11/20/2023 9:52 AM GARMENT PRESSER [facility] EN[facility] LAB[facility] Last Pap Date [id number] 11/20/2023 9:52 AM GARMENT PRESSER [facility] EN[facility] Last Pap Result First Pap/Unknown 9:52 AM GARMENT PRESSER [facility] EN[facility] LAB[facility] Abnormal Pap or [place] Bx in last 5 years No 11/20/2023 9:52 AM GARMENT PRESSER [facility] ENTRAL LAB[facility]ATORY Menstrual Status Regular Periods 11/20/2023 9:52 AM GARMENT PRESSER [facility] ENTRAL LABORATORY [place] Bx Done Today No 11/20/2023 9:52 AM GARMENT PRESSER [facility] ENTRAL LABORATORY Additional Information None given 11/20/2023 9:52 AM GARMENT PRESSER [facility] ENTRAL LABORATORY Comment: Cytology is screened at [facility] [employer] [facility] Central Laboratory - [address], [place] [address] [facility] Laboratory - [address] [place] [address], [place] [address] and [facility] - [address] [place] [address] Interpreted at [facility], Central Laboratory - [address], [place] [address] Automated Review Successful 11/20/2023 9:52 AM GARMENT PRESSER [facility] LAB[facility]-C ENTRAL LABORATORY Comment:Specimen processed s uccessfully by automated syrup filterer device, ThinPrep Imaging System, [employer] Note The pap test is a screening technique, not a diagnostic procedure. It is used primarily to screen for squamous cancers and precursor lesions. Published studies have shown that it is subject to both false negative and false positive results. The pap test should not be used as the sole means to diagnose or exclude pre-malignant and malignant lesions. 11/20/2023 9:52 AM GARMENT PRESSER [facility] [employer] LABORATORY-C ENTRAL LABORATORY Other (Cervical) Non-Blood / Unknown 11/09/2023 7:30 AM GARMENT PRESSER 11/09/2023 9:49 AM GARMENT PRESSER us Inder Juares MD PATHOLOGY/CYTOLOGY Fin al Result [facility] [address] [place] [address], [place] from Last 3 Months or Most Recently Relevant to Health Maintenance Care Teams Watershed Program Manager Relationship Specialty Start Date End Date Clinic, No Pcp Or . PCP - General 04/20/25
--- OUTSIDE RECORDS SUMMARY | 2025-05-26 16:46 | XMS_ITS | Encounter Summary ---
Author Organization [place] Address [facility] [place] [address] Care Team Providers Care Estimator Binding Name Role Phone No Ref-Primary, Physician Primary Care Provider Ying Dowling NANNY BABYSITTER RESIDENTIAL RECYCLE DRIVER Unavailable [phone] Encounter Details Date Type Department Care Team (Late st Contact Info) Description 04/26/2025 Results Follow-Up [facility] Nurse Advisors [facility] [place] [address] Leslie Hoffman, RN Social History Tobacco Use Types Packs/Day Years [...] on filedocumented in this encounter Care Teams Estimator Binding Relationship Specialty Start Date End Date No Ref-Primary, Physician PCP - General 04/24/25 Ying Dowling, NANNY BABYSITTER RESIDENTIAL RECYCLE DRIVER [address] [place] [address], [facility] [address] [place] [address] Nurse Practitioner Urology 05/05/25 documented as of this encounter
--- OUTSIDE RECORDS SUMMARY | 2025-05-26 16:46 | XMS_ITS | Encounter Summary ---
Author Organization [place] Address [facility] [place] [address] Care Team Providers Care Block Piler Name Role Phone No Ref-Primary, Physician Primary Care Provider Ying Dowling APRN RN RESIDENTIAL Unavailable [phone] Encounter Details Date Type Department Care Team (Latest Contact Info) Description 05/22/2025 [facility] [address] [place] [address] Ying Dowling APRN RN RESIDENTIAL [address] [facility], [facility] [address] [place] [address] Nephrolithiasis (Primary Dx) Social History Tobacco Use Types Packs/Day Years Used Date Smoking Tobacco: Never Assessed PHQ-2 Answer Date Recorded PHQ-2 Score 0 05/05/2025 Comments No Sex and Gender Information Value Date Recorded Sex Assigned at Not on file Legal Sex Female 7:31 AM CDT Gender Identity Not on file Sexual Orientation Not on file documented as of this encounter Plan of Treatment Scheduled Orders Name Type Priority Associated Diagnoses Orde r Schedule Stone analysis [[id number]] Lab Routine Nephrolithiasis Expected: 05/22/2025 (Approximate), Expires: 05/22/2026 documented as of this encounter Visit Diagnoses Diagnosis Nephrolithiasis- Primary Calculus of kidney documented in this encounter Care Teams Block Piler Relationship Specialty Start Date End Date No Ref-Primary, Physician PCP - General 04/24/25 Ying Dowling APRN RN RESIDENTIAL [address] [place] [address] [address] [place] [address] Nurse Practitioner Urology 05/05/25 documented as of this encounter
--- OUTSIDE RECORDS SUMMARY | 2025-05-26 16:46 | XMS_ITS | Encounter Summary ---
Author Organization [place] Address [address] [place] [address] Care Team Providers Care Acoustical Logging Engineer Name Role Phone No Ref-Primary, Physician Primary Care Provider Ying Dowling TIRE WRAPPER TABLET REPAIR Unavailable [phone] Reason for Visit * Reason Onset Date Comments Same Day Appointment 05/05/2025 Encounter Details Date Type Department Care Team (Late st Contact Info) Description 05/05/[address] [place] [id number] Ying Dowling, TIRE WRAPPER TABLET REPAIR [address] [facility], [facility] [address] [place] [address] Same Day Appointment Social History Tobacco Use Types Packs/Day Years Used Date Smoking Tobacco: Never Assessed PHQ-2 Answer Date Recorded PHQ-2 Score 0 05/05/2025 Comments No Sex and Gender Information Value Date Recorded Sex Assigned at Not on file Legal Sex Female 7:31 AM CDT Gender Identity Not on file Sexual Orientation Not on file documented as of this encounter Miscellaneous Notes * Telephone Encounter - [place] - 05/05/2025 11:15 AM CDT [facility] Call Center Phone Message May a detailed message be left on voicemail: yes Reason for Call: Other: Just a heads up that there is a new patient scheduled for a VV at 4:00 today. While on the phone with her she got a call from the clinic so this appt may be changing. Action Taken: Message routed to: [facility] Misti AGUIRRE Travel Screening: Not Applicable Date of Service: documented in this encounter Plan of Treatment Not on file documented as of this encounter Visit Diagnoses Not on filedocumented in this encounter Care Teams Acoustical Logging Engineer Relationship Specialty Start Date End Date No Ref-Primary, Physician PCP - General 04/24/25 Ying Dowling, TIRE WRAPPER TABLET REPAIR [address] [place] [address], [facility] [address] [place] [id number] Nurse Practitioner Urology 05/05/25 documented as of this encounter
--- OUTSIDE RECORDS SUMMARY | 2025-05-26 16:46 | XMS_ITS | Encounter Summary ---
Author Organization [place] Address [facility] [place] [address] Care Team Providers Care Hospital Plan Administrator Name Role Phone No Ref-Primary, Physician Primary Care Provider Ying Dowling APRN DISPATCHER BUS AND [employer]OL[employer] Unavailable [phone] Encounter Details Date Type Department Care Team (Late st Contact Info) Description 05/03/2025 Results Follow-Up [facility] Nurse Advisors [facility] [place] [address] Baylee Lazo, RN Social History Tobacco Use Types Packs/Day [...] on filedocumented in this encounter Care Teams Hospital Plan Administrator Relationship Specialty Start Date End Date No Ref-Primary, Physician PCP - General 04/24/25 Ying Dowling, UI APPLICATION DEVELOPER DISPATCHER [employer] [address] [place] [address], [facility] [address] [place] [address] Nurse Practitioner Urology 05/05/25 documented as of this encounter
--- OUTSIDE RECORDS SUMMARY | 2025-05-26 16:46 | XMS_ITS | Encounter Summary ---
Author Organization [place] Address [facility] [place] [address] Care Team Providers Care Ambulance Assistant Name Role Phone No Ref-Primary, Physician Primary Care Provider Ying Dowling APRN MANAGER AUTO Unavailable [phone] Reason for Visit * Reason Comments Medication Refill Encounter Details Date Type Department Care Team (Late st Contact Info) Description 05/05/[address] [place] [phone] Ying Dowling APRN MANAGER AUTO [address] [facility], [facility] [address] [place] [address] Medication Refill Social History Tobacco Use Types Packs/Day Years [...] encounter Visit Diagnoses Diagnosis Acute left flank pain Abdominal pain, unspecified site documented in this encounter Care Teams Ambulance Assistant Relationship Specialty Start Date End Date No Ref-Primary, Physician PCP - General 04/24/25 Ying Dowling APRN MANAGER AUTO [address] [facility], [facility] [address] [place] [address] Nurse Practitioner Urology 05/05/25 documented as of this encounter
[2025-05-26] MEDS: LIDOCAINE 1%-EPI 1:100,000 3 ML INFILTRATI (17:22)
== END 2025-05-26 17:25 | disposition home or self-care (01) ==
PROVIDERS: Emergency Provider Student in an Organized Health Care Education/Training Program
DX: S01.81XA Laceration without foreign body of other part of head, initial encounter (principal); W26.8XXA Contact with other sharp object(s), not elsewhere classified, initial encounter; Y99.0 Civilian activity done for income or pay
CPT/HCPCS: 12013; 99283